=== PATIENT | male | born 1995 | race Caucasian/White ===

== ENCOUNTER 2022-12-20 00:53 | Emergency (ER) | payer BC, OTHER ==
[~2022-12-20] VITALS: Ht 178 cm; Wt 76.0 kg
[2022-12-20] MEDS ORDERED: KETOROLAC INJ 30 MG/ML VIAL IVP STA (01:14)
[2022-12-20] MEDS ORDERED: NS IV 1000 ML 1,000 ML IV STA (01:14)
[2022-12-20] MEDS ORDERED: FLUO90CA4 PO (01:14)
[2022-12-20] MEDS ORDERED: ONDANSETRON INJECTION 4 MG/2 ML (SDV) IVP ONE (01:15)
[2022-12-20] MEDS ORDERED: PANTOPRAZOLE INJECTION 40 MG VIAL IV ONE (01:15)
[2022-12-20 01:32] LABS: BASOPHILS # (AUTO) 0.1 10^3/uL (0.0-0.1); BASOPHILS % (AUTO) 1 % (0-10); EOSINOPHILS % (AUTO) 0 % (0-10); HEMATOCRIT 45 % (40-54); HEMOGLOBIN 15.8 g/dL (13.3-17.7); LYMPHOCYTES # (AUTO) 2.7 10^3/uL (1.0-4.0); LYMPHOCYTES % (AUTO) 27 % (12-44); MEAN CORPUSCULAR HEMOGLOBIN 34 pg (25-34); MEAN CORPUSCULAR HGB CONC 35 g/dL (32-36); MEAN CORPUSCULAR VOLUME 97 fL (80-99); MEAN PLATELET VOLUME 9.1 fL (9.0-12.2); MONOCYTES % (AUTO) 11 % (0-12); NEUTROPHILS # (AUTO) 6.1 10^3/uL (1.8-7.8); NEUTROPHILS % (AUTO) 62 % (42-75); PLATELET COUNT 319 10^3/uL (130-400); WHITE BLOOD COUNT 9.8 10^3/uL (4.3-11.0)
--- NOTE | 2022-12-20 01:45 | ED Abdominal Pain ---
General Chief Complaint: Abdominal/GI Problems Stated Complaint: VOMITING Nursing Triage Note: UPPER ABDOMINAL PAIN, N/V/D SINCE 12/16/22 Source of Information: Patient Exam Limitations: No Limitations History of Present Illness Date Seen by Provider: Dec 20, 2022 Time Seen by Provider: 01:09 Initial Comments Here with report of nausea, vomiting and diarrhea over the last 3 days. States that he is unable to keep anything down. He is able to tolerate some fluids but if she eats anything it comes back up. Denies blood in his vomit or stools. Denies fever currently. He tried some old Zofran that he had at home and that did not help. Complains of pain in the left epigastric region. Feeling worse tonight and so presented to the ED. Timing/Duration: 3-4 Days Severity/Quality: Moderate, Aching, Cramping Location: Epigastric Radiation: LUQ Activities at Onset: None Modifying Factors: Worsens With Eating Associated Symptoms: No Back Pain, No Chest Pain, No Fever/Chills; Nausea/Vomiting; No Shortness of Air; Weakness Allergies and Home Medications Allergies Coded Allergies: No Known Drug Allergies (Unverified , 12/20/22) Patient Home Medication List Home Medication List Reviewed: Yes Fluoxetine HCl (Fluoxetine Dr) 90 Mg Capsule.dr, Unknown Dose PO, (Reported) Entered as Reported by: PINO JURADO on 12/20/22113 Last Action: New Order Review of Systems Review of Systems Constitutional: see HPI; No chills, No fever EENTM: Nose Congestion; No Throat Pain Respiratory: Denies Orthopnea, Denies Shortness of Air Cardiovascular: Denies Chest Pain, Denies Edema Gastrointestinal: Abdominal Pain, Diarrhea, Nausea, Vomiting Genitourinary: No Symptoms Reported Musculoskeletal: no symptoms reported Skin: no symptoms reported Psychiatric/Neurological: No Symptoms Reported Past Xonubvm-Pkigci-[id number] Hx Patient Social History Tobacco Use?: Yes Use of E-Cig and/or Vaping dev: Yes E-Cig or Vaping type used: Nicotine Substance use?: No Alcohol Use?: Yes Alcohol Frequency: Once in a while Pt feels they are or have been: No Past Medical History Surgery/Hospitalization HX: RIGHT FEMUR BOWEN, GASTRIC ULCER, DEPRESSION, ANXIETY Surgeries: Yes Orthopedic Cardiac: No Neurological: No Gastrointestinal: Yes Gastroesophageal Reflux, Ulcer Musculoskeletal: Yes Fractures Psychosocial: Yes Anxiety Family Medical History Reviewed Nursing Family Hx Physical Exam Vital Signs Vital Signs - First Documented 12/20/22 01:05 Temp 37.3 Pulse 106 Resp 18 B/P (MAP) 150/108 (122) Pulse Ox 93 O2 Delivery Room Air Capillary Refill : Less Than 3 Seconds Height/Weight/BMI Height: '" Weight: lbs. oz. kg; 23.00 BMI Method: General Appearance: WD/WN, no apparent distress HEENT: PERRL/EOMI, pharynx normal Neck: full range of motion, supple Respiratory: lungs clear, normal breath sounds Cardiovascular: no murmur, tachycardia Gastrointestinal: soft; No guarding, No rebound; tenderness (Epigastric left upper quadrant mild tenderness to palpation) Back: normal inspection, no CVA tenderness, no vertebral tenderness Neurologic/Psychiatric: alert, oriented x 3 Skin: normal color, warm/dry Progress/Results/Core Measures Results/Orders Lab Results Laboratory Tests Test 12/20/22 01:15 Range/Units White Blood Count 9.8 4.3-11.0 10^3/uL Red Blood Count 4.67 4.30-5.52 10^6/uL Hemoglobin 15.8 13.3-17.7 g/dL Hematocrit 45 40-54 % Mean Corpuscular Volume 97 80-99 fL Mean Corpuscular Hemoglobin 34 25-34 pg Mean Corpuscular Hemoglobin Concent 35 32-36 g/dL Red Cell Distribution Width 11.8 10.0-14.5 % Platelet Count 319 130-400 10^3/uL Mean Platelet Volume 9.1 9.0-12.2 fL Immature Granulocyte % (Auto) 0 % Neutrophils (%) (Auto) 62 42-75 % Lymphocytes (%) (Auto) 27 12-44 % Monocytes (%) (Auto) 11 0-12 % Eosinophils (%) (Auto) 0 0-10 % Basophils (%) (Auto) 1 0-10 % Neutrophils # (Auto) 6.1 1.8-7.8 10^3/uL Lymphocytes # (Auto) 2.7 1.0-4.0 10^3/uL Monocytes # (Auto) 1.0 0.0-1.0 10^3/uL Eosinophils # (Auto) 0.0 0.0-0.3 10^3/uL Basophils # (Auto) 0.1 0.0-0.1 10^3/uL Immature Granulocyte # (Auto) 0.0 0.0-0.1 10^3/uL Sodium Level 137 135-145 MMOL/L Potassium Level 3.6 3.6-5.0 MMOL/L Chloride Level 97 L 98-107 MMOL/L Carbon Dioxide Level 21 21-32 MMOL/L Anion Gap 19 H 5-14 MMOL/L Blood Urea Nitrogen 5 L 7-18 MG/DL Creatinine 0.86 0.60-1.30 MG/DL Estimat Glomerular Filtration Rate 120 BUN/Creatinine Ratio 6 Glucose Level 99 70-105 MG/DL Calcium Level 9.3 8.5-10.1 MG/DL Corrected Calcium 8.5-10.1 MG/DL Total Bilirubin 0.7 0.1-1.0 MG/DL Aspartate Amino Transf (AST/SGOT) 54 H 5-34 U/L Alanine Aminotransferase (ALT/SGPT) 51 0-55 U/L Alkaline Phosphatase 83 40-136 U/L C-Reactive Protein High Sensitivity 0.02 0.00-0.50 MG/DL Total Protein 7.8 6.4-8.2 GM/DL Albumin 4.6 H 3.2-4.5 GM/DL Lipase 18 8-78 U/L My Orders Orders - PATRICIA NEWMAN MD Cbc And Automated Diff (12/20/22 01:14) Comprehensive Metabolic Panel (12/20/22 01:14) Hs C Reactive Protein (12/20/22 01:14) Lipase (12/20/22 01:14) Ondansetron Injection (Ondansetron Inj (12/20/22 01:15) Ns Iv 1000 Ml (Ns Iv 1000 Ml) (12/20/22 01:14) Ed Iv/Invasive Line Start (12/20/22 01:14) Ketorolac Injection (Ketorolac Injection (12/20/22 01:14) Pantoprazole Injection (Pantoprazole Inj (12/20/22 01:15) Fentanyl Injection (Fentanyl Injection (12/20/22 01:58) Medications Given in ED Current Medications Medications Dose Ordered Sig/Inder Route Start Time Stop Time Status Last Admin Dose Admin Ondansetron HCl 4 mg ONCE ONCE IVP 12/20/22 01:15 12/20/22 01:16 DC 10/4/23 01:21 4 MG Pantoprazole 40 mg ONCE ONCE IV 12/20/22 01:15 12/20/22 01:16 DC 12/20/22 01:21 40 MG Vital Signs/I&O 12/20/22 01:05 Temp 37.3 Pulse 106 Resp 18 B/P (MAP) 150/108 (122) Pulse Ox 93 O2 Delivery Room Air Blood Pressure Mean: 122 Progress Progress Note : Progress Note Seen and evaluated. IV, labs including CBC, CMP and lipase ordered. Normal saline 1 L bolus. Zofran 4 mg IV, Toradol 30 mg IV and Protonix 40 mg IV ordered. Monitor patient. Differential diagnosis includes pancreatitis, gastritis, dehydration, electrolyte abnormality, gallbladder dysfunction 0145: CBC is grossly normal. Chemistries pending. 0233: I did add fentanyl 50 mcg IV for pain and he is doing much better now. CMP reviewed and shows grossly normal electrolytes with normal creatinine. LFTs grossly normal with normal bilirubin. Lipase is negative. CRP is negative. Given that he is feeling better and labs do not show significant abnormality, I do not believe CT scan would be indicated at this point. I did discussed the option of CT scan of the abdomen and pelvis with the patient and we reviewed risk and benefits. Ultimately we all agree against it at this point but would consider that in the future if pain worsened. Discharged home with return precautions, OTC medications instructions and follow-up plan. Blood pressure noted to be elevated at 150/100 currently. I am not sure if this is ED effect versus true hypertension. I have instructed him to follow-up with Dr. Gabriel, patient's primary care physician, for further evaluation of this. He will monitor and record his blood pressure and take that to the visit. I will send a copy of the note to Dr. Gabriel. Discharged home with return precautions. Patient verbalized understanding of instructions and agreement with plan. Departure Impression Primary Impression: Epigastric abdominal pain Additional Impressions: Nausea vomiting and diarrhea Dehydration Disposition: HOME, SELF-CARE Condition: Improved Departure-Patient Inst. Decision time for Depature: 02:36 Referrals: JOSEFINA GABRIEL MD (PCP/Family) Primary Care Physician Patient Instructions: Severe Abdominal Pain, Adult (DC), Nausea and Vomiting, Adult (DC), Dehydration, Adult (DC), Diarrhea in adolescents and adults Add. Discharge Instructions: All discharge instructions reviewed with patient and/or family. Voiced understanding. Drink plenty of fluids by taking small sips frequently. Use clear a light diet for the next 24 to 48 hours and then advance as tolerated. You should initiate [id number] omeprazole 20 mg daily and take this for at least the next 2 weeks and then as needed. For your blood pressure, monitor and record your blood pressure daily and follow-up with Dr. Gabriel to evaluate if there is further needs for blood pressure control. Take the log with you to his office. For pain, you may use Tylenol/acetaminophen 1000 mg every 6-8 hours as needed for pain. You may try a limited amount of ibuprofen if needed for breakthrough pain but this may cause some additional burning in your stomach and otherwise should be avoided. Return for worse pain, fever, vomiting, weakness, breathing problems or other concerns as needed. Take medications as directed. Scripts Ondansetron (Ondansetron Odt) 4 Mg Tab.rapdis 4 MG PO Q6H PRN for NAUSEA/VOMITING, #12 TAB 0 Refills Prov: PATRICIA NEWMAN MD 12/20/22 Copy Copies To 1: JOSEFINA GABRIEL MD, TIMOTHY D MD Dec 20, 2022 01:45
[2022-12-20 01:46] LABS: ALBUMIN 4.6 GM/DL (3.2-4.5); CHLORIDE 97 MMOL/L (98-107); POTASSIUM 3.6 MMOL/L (3.6-5.0); SODIUM 137 MMOL/L (135-145)
[2022-12-20 01:47] LABS: CALCIUM 9.3 MG/DL (8.5-10.1)
[2022-12-20 01:49] LABS: GLUCOSE 99 MG/DL (70-105); TOTAL PROTEIN 7.8 GM/DL (6.4-8.2)
[2022-12-20 01:50] LABS: BILIRUBIN,TOTAL 0.7 MG/DL (0.1-1.0); CARBON DIOXIDE 21 MMOL/L (21-32)
[2022-12-20 01:52] LABS: ALKALINE PHOSPHATASE 83 U/L (40-136); CREATININE SERUM 0.86 MG/DL (0.60-1.30); GFR ESTIMATED 120
[2022-12-20 01:53] LABS: BUN/CREATININE RATIO 6
[2022-12-20 01:55] LABS: ALANINE AMINOTRANSFERASE 51 U/L (0-55)
[2022-12-20 01:56] LABS: LIPASE 18 U/L (8-78)
[2022-12-20] MEDS ORDERED: fentaNYL INJECTION 100 MCG/2 ML VIAL IVP STA (01:58)
[2022-12-20] MEDS ORDERED: ONDA4TAB11 PO (02:37)
[2022-12-20 02:41] VITALS: BP 155/108
== END 2022-12-20 02:44 | disposition home or self-care (01) ==
LOC: ER 00:56
DX: R10.13 Epigastric pain (principal); E86.0 Dehydration; R11.2 Nausea with vomiting, unspecified; R19.7 Diarrhea, unspecified; R03.0 Elevated blood-pressure reading, without diagnosis of hypertension; F17.290 Nicotine dependence, other tobacco product, uncomplicated
CPT/HCPCS: 36415; 80053; 83690; 85025; 86141

== ENCOUNTER 2022-12-27 09:37 | Inpatient (IN) | payer BC ==
[~2022-12-27] VITALS: Ht 177.8 cm; Wt 71.8 kg
[~2022-12-27 09:37] MED LIST: FLUO90CA4 PO; ONDA4TAB11 PO
[2022-12-27] MEDS ORDERED: PANTOPRAZOLE INJECTION 40 MG VIAL IV ONE (10:00)
[2022-12-27] MEDS ORDERED: ONDANSETRON INJECTION 4 MG/2 ML (SDV) IVP ONE (10:00)
[2022-12-27] MEDS ORDERED: LACTATED RINGERS 1,000 ML 1,000 ML IV ONE (10:00)
--- NOTE | 2022-12-27 10:10 | ED Abdominal Pain ---
General Chief Complaint: Abdominal/GI Problems Stated Complaint: ABD PAIN | VOMITING Nursing Triage Note: PT AMB TO RM 10 WITH COMPLAINT OF ABD PAIN, N/V. STATES HE HAS HAD SYMPTOMS FOR 2 WEEKS. WAS SEEN IN ER A WEEK AGO. Source of Information: Patient Exam Limitations: No Limitations (CASSIE PAEZ) History of Present Illness Date Seen by Provider: Dec 27, 2022 Time Seen by Provider: 09:52 Initial Comments Patient presents to the ED today with a 2 week history of Nausea, Vomiting and Abdominal pain. He was recently seen in the ED by Dr. Newman on 12/20. He says that the Zofran that was prescribed to him on the helped for a day or two but he was not intaking much at that time. He said in the next coming days his symptoms had worsened and he has not had any relief with use of Zofran, Pepto, or Tums. He states he has had a 10 lb weight loss over the past two weeks. He complains of also having diaphoresis and chills during this time frame. He describes the abdominal pain as a stabbing and burning pain. Timing/Duration: Getting Worse Severity/Quality: Mild, Burning, Stabbing Location: Generalized Abdomen Radiation: Back Activities at Onset: None Modifying Factors: Improves With Antacids, Improves With Vomiting Associated Symptoms: Back Pain, Diaphoresis, Fever/Chills, Nausea/Vomiting (CASSIE PAEZ) Allergies and Home Medications Allergies Coded Allergies: No Known Drug Allergies (Unverified , 12/20/22) Patient Home Medication List Home Medication List Reviewed: Yes (CASSIE PAEZ) Fluoxetine HCl (Fluoxetine Dr) 90 Mg Capsule.dr, Unknown Dose PO, (Reported) Entered as Reported by: PINO JURADO on 12/20/22 0114 Ondansetron (Ondansetron Odt) 4 Mg Tab.rapdis, 4 MG PO Q6H PRN for NAUSEA/VOMITING Prescribed by: PATRICIA NEWMAN on 12/20/22 0236 Review of Systems Review of Systems Constitutional: chills, diaphoresis, fever, weight loss (10 lbs) Respiratory: No Symptoms Reported Cardiovascular: No Symptoms Reported Gastrointestinal: Abdominal Pain, Diarrhea (occasionally over past 2 weeks. ), Nausea, Poor Appetite, Poor Fluid Intake, Vomiting Musculoskeletal: back pain (believes from throwing up often) Psychiatric/Neurological: Anxiety (CASSIE PAEZ) Past Zuecxcd-Cdvezg-Xgrnmx Hx Patient Social History Tobacco Use?: No Use of E-Cig and/or Vaping dev: Yes Use of E-Cig and/or Vaping Anthony: Current Everyday User Substance use?: No Alcohol Use?: Yes Alcohol Frequency: Once in a while Pt feels they are or have been: No (CASSIE PAEZ) Past Medical History Surgery/Hospitalization HX: RIGHT FEMUR BOWEN, GASTRIC ULCER, DEPRESSION, ANXIETY Surgeries: Yes Orthopedic Respiratory: No Cardiac: No Neurological: No Gastrointestinal: Yes Gastroesophageal Reflux, Ulcer Musculoskeletal: Yes Fractures (right femur) Psychosocial: Yes Anxiety (CASSIE PAEZ) Physical Exam Vital Signs Vital Signs - First Documented 12/27/22 09:50 Temp 36.9 Pulse 101 Resp 99 B/P (MAP) 152/100 (117) Pulse Ox 99 O2 Delivery Room Air Capillary Refill : Less Than 3 Seconds Height/Weight/BMI Height: '" Weight: lbs. oz. kg; 24.00 BMI Method: General Appearance: WD/WN, mild distress Neck: non-tender, supple Respiratory: lungs clear, normal breath sounds, no respiratory distress, no a ccessory muscle use; No crackles, No rales, No wheezing Cardiovascular: no gallop, no murmur, tachycardia Gastrointestinal: soft, no organomegaly, no pulsatile mass, abnormal bowel sounds (hyperactive), tenderness (diffuse); No hepatomegaly, No spleenomegaly Back: normal inspection, no vertebral tenderness Neurologic/Psychiatric: alert, normal mood/affect, oriented x 3 (CASSIE PAEZ) Vital Signs Vital Signs - First Documented 12/27/22 09:50 Temp 36.9 Pulse 101 Resp 99 B/P (MAP) 152/100 (117) Pulse Ox 99 O2 Delivery Room Air (CIARA CHAVEZ MD) Progress/Results/Core Measures Results/Orders Lab Results Laboratory Tests Test 12/27/22 10:15 Range/Units White Blood Count 9.6 4.3-11.0 10^3/uL Red Blood Count 5.07 4.30-5.52 10^6/uL Hemoglobin 17.0 13.3-17.7 g/dL Hematocrit 50 40-54 % Mean Corpuscular Volume 99 80-99 fL Mean Corpuscular Hemoglobin 34 25-34 pg Mean Corpuscular Hemoglobin Concent 34 32-36 g/dL Red Cell Distribution Width 11.9 10.0-14.5 % Platelet Count 301 130-400 10^3/uL Mean Platelet Volume 9.6 9.0-12.2 fL Immature Granulocyte % (Auto) 0 % Neutrophils (%) (Auto) 81 H 42-75 % Lymphocytes (%) (Auto) 11 L 12-44 % Monocytes (%) (Auto) 7 0-12 % Eosinophils (%) (Auto) 0 0-10 % Basophils (%) (Auto) 1 0-10 % Neutrophils # (Auto) 7.8 1.8-7.8 10^3/uL Lymphocytes # (Auto) 1.1 1.0-4.0 10^3/uL Monocytes # (Auto) 0.7 0.0-1.0 10^3/uL Eosinophils # (Auto) 0.0 0.0-0.3 10^3/uL Basophils # (Auto) 0.1 0.0-0.1 10^3/uL Immature Granulocyte # (Auto) 0.0 0.0-0.1 10^3/uL Sodium Level 140 135-145 MMOL/L Potassium Level 4.1 3.6-5.0 MMOL/L Chloride Level 101 98-107 MMOL/L Carbon Dioxide Level 24 21-32 MMOL/L Anion Gap 15 H 5-14 MMOL/L Blood Urea Nitrogen 7 7-18 MG/DL Creatinine 1.09 0.60-1.30 MG/DL Estimat Glomerular Filtration Rate 94 BUN/Creatinine Ratio 6 Glucose Level 112 H 70-105 MG/DL Calcium Level 10.2 H 8.5-10.1 MG/DL Corrected Calcium 8.5-10.1 MG/DL Magnesium Level 1.9 1.6-2.4 MG/DL Total Bilirubin 1.0 0.1-1.0 MG/DL Aspartate Amino Transf (AST/SGOT) 36 H 5-34 U/L Alanine Aminotransferase (ALT/SGPT) 35 0-55 U/L Alkaline Phosphatase 81 40-136 U/L Total Protein 8.7 H 6.4-8.2 GM/DL Albumin 4.9 H 3.2-4.5 GM/DL Lipase 10 8-78 U/L Medications Given in ED Current Medications Medications Dose Ordered Sig/Inder Route Start Time Stop Time Status Last Admin Dose Admin Fentanyl Citrate 50 mcg ONCE ONCE IVP 12/27/22 10:15 12/27/22 10:16 DC 12/27/22 10:10 50 MCG Lactated Ringer's 1,000 ml @ 0 mls/hr Q0M ONCE IV 12/27/22 10:00 12/27/22 10:02 DC 12/27/22 10:09 0 MLS/HR Ondansetron HCl 8 mg ONCE ONCE IVP 12/27/22 10:00 12/27/22 10:02 DC 12/27/22 10:10 8 MG Pantoprazole 40 mg ONCE ONCE IV 12/27/22 10:00 12/27/22 10:02 DC 12/27/22 10:09 40 MG Vital Signs/I&O 12/27/22 09:50 Temp 36.9 Pulse 101 Resp 99 B/P (MAP) 152/100 (117) Pulse Ox 99 O2 Delivery Room Air Blood Pressure Mean: 117 (CASSIE PAEZ) Lab Results Laboratory Tests Test 12/27/22 10:15 12/27/22 11:14 Range/Units White Blood Count 9.6 4.3-11.0 10^3/uL Red Blood Count 5.07 4.30-5.52 10^6/uL Hemoglobin 17.0 13.3-17.7 g/dL Hematocrit 50 40-54 % Mean Corpuscular Volume 99 80-99 fL Mean Corpuscular Hemoglobin 34 25-34 pg Mean Corpuscular Hemoglobin Concent 34 32-36 g/dL Red Cell Distribution Width 11.9 10.0-14.5 % Platelet Count 301 130-400 10^3/uL Mean Platelet Volume 9.6 9.0-12.2 fL Immature Granulocyte % (Auto) 0 % Neutrophils (%) (Auto) 81 H 42-75 % Lymphocytes (%) (Auto) 11 L 12-44 % Monocytes (%) (Auto) 7 0-12 % Eosinophils (%) (Auto) 0 0-10 % Basophils (%) (Auto) 1 0-10 % Neutrophils # (Auto) 7.8 1.8-7.8 10^3/uL Lymphocytes # (Auto) 1.1 1.0-4.0 10^3/uL Monocytes # (Auto) 0.7 0.0-1.0 10^3/uL Eosinophils # (Auto) 0.0 0.0-0.3 10^3/uL Basophils # (Auto) 0.1 0.0-0.1 10^3/uL Immature Granulocyte # (Auto) 0.0 0.0-0.1 10^3/uL Sodium Level 140 135-145 MMOL/L Potassium Level 4.1 3.6-5.0 MMOL/L Chloride Level 101 98-107 MMOL/L Carbon Dioxide Level 24 21-32 MMOL/L Anion Gap 15 H 5-14 MMOL/L Blood Urea Nitrogen 7 7-18 MG/DL Creatinine 1.09 0.60-1.30 MG/DL Estimat Glomerular Filtration Rate 94 BUN/Creatinine Ratio 6 Glucose Level 112 H 70-105 MG/DL Calcium Level 10.2 H 8.5-10.1 MG/DL Corrected Calcium 8.5-10.1 MG/DL Magnesium Level 1.9 1.6-2.4 MG/DL Total Bilirubin 1.0 0.1-1.0 MG/DL Aspartate Amino Transf (AST/SGOT) 36 H 5-34 U/L Alanine Aminotransferase (ALT/SGPT) 35 0-55 U/L Alkaline Phosphatase 81 40-136 U/L C-Reactive Protein High Sensitivity 0.19 0.00-0.50 MG/DL Total Protein 8.7 H 6.4-8.2 GM/DL Albumin 4.9 H 3.2-4.5 GM/DL Lipase 10 8-78 U/L Serum Alcohol < 10 <10 MG/DL Urine Color YELLOW Urine Clarity CLEAR Urine pH 8.5 5-9 Urine Specific [place] 1.015 L 1.016-1.022 Urine Protein 1+ H NEGATIVE Urine Glucose (UA) NEGATIVE NEGATIVE Urine Ketones 4+ H NEGATIVE Urine Nitrite NEGATIVE NEGATIVE Urine Bilirubin NEGATIVE NEGATIVE Urine Urobilinogen 0.2 < = 1.0 MG/DL Urine Leukocyte Esterase NEGATIVE NEGATIVE Urine RBC (Auto) TRACE H NEGATIVE Urine RBC RARE /HPF Urine WBC 0-2 /HPF Urine Crystals NONE /LPF Urine Bacteria NEGATIVE /HPF Urine Casts NONE /LPF Urine Mucus SMALL H /LPF Urine Other FEW SPERM H /HPF Urine Culture Indicated NO Urine Opiates Screen NEGATIVE NEGATIVE Urine Oxycodone Screen NEGATIVE NEGATIVE Urine Methadone Screen NEGATIVE NEGATIVE Urine Propoxyphene Screen NEGATIVE NEGATIVE Urine Barbiturates Screen NEGATIVE NEGATIVE Ur Tricyclic Antidepressants Screen NEGATIVE NEGATIVE Urine Phencyclidine Screen NEGATIVE NEGATIVE Urine Amphetamines Screen NEGATIVE NEGATIVE Urine Methamphetamines Screen NEGATIVE NEGATIVE Urine Benzodiazepines Screen NEGATIVE NEGATIVE Urine Cocaine Screen NEGATIVE NEGATIVE Urine Cannabinoids Screen NEGATIVE NEGATIVE My Orders Orders - CIARA CHAVEZ MD Cbc And Automated Diff (12/27/22 10:00) Comprehensive Metabolic Panel (12/27/22 10:00) Hs C Reactive Protein (12/27/22 10:00) Lipase (12/27/22 10:00) Magnesium (12/27/22 10:00) Ed Iv/Invasive Line Start (12/27/22 10:00) Lactated Ringers 1,000 Ml (Lactated Ring (12/27/22 10:00) Ondansetron Injection (Ondansetron Inj (12/27/22 10:00) Pantoprazole Injection (Pantoprazole Inj (12/27/22 10:00) Fentanyl Injection (Fentanyl Injection (12/27/22 10:15) Lidocaine 2% Viscous 15 Ml (Xylocaine Vi (12/27/22 10:45) Antacid Suspension (Antacid Suspension (12/27/22 10:45) Ns Iv 500 Ml (Ns Iv 500 Ml) (12/27/22 10:45) Promethazine Injection (Promethazine I (12/27/22 10:45) Drug Screen Stat (Urine) (12/27/22 11:07) Ua Culture If Indicated (12/27/22 11:07) Fentanyl Injection (Fentanyl Injection (12/27/22 11:30) Scopolamine Patch (Scopolamine Patch) (12/27/22 12:00) Diphenhydramine Injection (Diphenhydram (12/27/22 12:15) Ct Abdomen/Pelvis W (12/27/22 12:09) Received Contrast (Hold Metformin- Contr (12/27/22 12:15) Ns (Ivpb) 100 Ml (Sodium Chloride 0.9% 1 (12/27/22 12:15) Iohexol Injection (Omnipaque 350 Mg/Ml 1 (12/27/22 12:15) Morphine Injection (Morphine Injection (12/27/22 13:34) Alcohol (12/27/22 14:02) Lorazepam Injection (Lorazepam Injection (12/27/22 14:15) Medications Given in ED Current Medications Medications Dose Ordered Sig/Inder Route Start Time Stop Time Status Last Admin Dose Admin Diphenhydramine HCl 25 mg ONCE ONCE IVP 12/27/22 12:15 12/27/22 12:16 DC 12/27/22 12:24 25 MG Fentanyl Citrate 50 mcg ONCE ONCE IVP 12/27/22 10:15 12/27/22 10:16 DC 12/27/22 10:10 50 MCG Fentanyl Citrate 50 mcg ONCE ONCE IVP 12/27/22 11:30 12/27/22 11:31 DC 12/27/22 12:00 50 MCG Iohexol 100 ml ONCE ONCE IV 12/27/22 12:15 12/27/22 12:16 DC 12/27/22 12:32 80 ML Lactated Ringer's 1,000 ml @ 0 mls/hr Q0M ONCE IV 12/27/22 10:00 12/27/22 10:02 DC 12/27/22 10:09 0 MLS/HR Lorazepam 1 mg ONCE ONCE IVP 12/27/22 14:15 12/27/22 14:16 DC 12/27/22 14:13 1 MG Ondansetron HCl 8 mg ONCE ONCE IVP 12/27/22 10:00 12/27/22 10:02 DC 12/27/22 10:10 8 MG Pantoprazole 40 mg ONCE ONCE IV 12/27/22 10:00 12/27/22 10:02 DC 12/27/22 10:09 40 MG Promethazine HCl 25 mg ONCE ONCE IVP 12/27/22 10:45 12/27/22 10:46 DC 12/27/22 11:20 25 MG Scopolamine 1.5 mg ONCE ONCE TD 12/27/22 12:00 12/27/22 12:01 DC 12/27/22 11:58 1.5 MG Sodium Chloride 100 ml ONCE ONCE IV 12/27/22 12:15 12/27/22 12:16 DC 12/27/22 12:33 80 ML Sodium Chloride 500 ml @ 0 mls/hr Q0M ONCE IV 12/27/22 10:45 12/27/22 10:46 DC 12/27/22 11:20 0 MLS/HR Vital Signs/I&O 12/27/22 09:50 Temp 36.9 Pulse 101 Resp 99 B/P (MAP) 152/100 (117) Pulse Ox 99 O2 Delivery Room Air (CIARA CHAVEZ MD) Progress Progress Note : Time: 09:52 Progress Note 09:52 - Patient presents with a 2 week history of N/V and abdominal pain. He was recently seen on December [address] Newman. He was prescribed Zofran at that time, to which he says worked for a day or two but symptoms soon came back and then worsened. He has also tried Pepto and Tums during this time frame. He says that he has had a 10 lb weight loss over the past two weeks. He complains of diaphoresis and chills that he says have gotten worse over the past couple of days. He described the pain in his abdomen as a stabbing and burning pain. He does have a history of stomach ulcer as well as GERD. He has diffuse tenderness to all areas of his abdomen but is worse in RUQ and epigastric area. He has vomited while throwing up in the ED. He is currently tachycardic and has an elevated blood pressure of 163/130, that he says is not the normal for him. His lungs are clear on auscultation. Plan is to obtain a CBC, CMP, Magnesium. He is being prescribed Zofran, Pantoprazole, and Fentenyl at this time as well as being given LR IV to help with rehydration. 10:50 - Patient is currently still profusely throwing up. He says that the Zofran, Pantoprazole and Fentenyl had helped him feel a little better but has since been throwing up again. A GI cocktail was originally offered, but this order has been cancelled due to his cyclic vomiting. The plan is to give him a 500 bag of Saline with Phenergan to try to stop his nausea an vomiting. (CASSIE PAEZ) Progress Note : Time: 14:49 Progress Note Patient was interviewed and examined by me personally along with PA student. Work-up was essentially unremarkable including CBC, CMP, CRP, lipase, urinalysis, and toxicology screening. All these labs were reviewed and interpreted by me. Patient had persistent vomiting and abdominal pain despite treatment with multiple antiemetics including Zofran 8 mg IV, Phenergan 25 mg IV, Benadryl 25 mg IV, scopolamine patch, and Protonix. His girlfriend later gave a different history of his alcohol consumption reporting to nursing staff that he often drank up to 8 beers nightly. I suspect he may be withdrawing as he is hypertensive and has tremors on repeat exam. He was given a dose of Ativan 1 mg IV which did help his symptoms. Tremors and hypertension remained. He is being given another dose of Ativan prior to admission. Case has been discussed with Dr. Restrepo, hospitalist on-call, who agrees with admission and is placing orders. (CIARA CHAVEZ MD) Diagnostic Imaging Diagonstic Imaging: CT Plain Films/CT/US/NM/MRI: abdomen, pelvis Comments NAME: YARED WATKINS [facility] REC#: [id number] PT STATUS: REG ER : 1995 PHYSICIAN: CIARA CHAVEZ MD ADMIT DATE: 12/27/22/ER Signed Date of Exam:12/27/22 CT ABDOMEN/PELVIS W PROCEDURE: CT abdomen and pelvis with contrast. TECHNIQUE: Multiple contiguous axial images were obtained through the abdomen and pelvis after administration of intravenous contrast. Auto Exposure Controls were utilized during the CT exam to meet ALARA standards for radiation dose reduction. All CT scans use one or more of the following dose optimizing techniques: automated exposure control, MA and/or KvP adjustment based on patient size and exam type or iterative reconstruction. INDICATION: Abdominal pain and emesis. FINDINGS: There is no focal hepatic or splenic abnormality. No gallbladder, pancreatic, or adrenal gland abnormality is identified. There is an approximately 0.3 cm nonobstructing stone in the central right kidney. There is no hydronephrosis. No additional urinary tract calculus or obstruction is identified. There is no evidence of appendiceal inflammation. The unopacified bladder is unremarkable. No pathologically enlarged adenopathy is seen within the abdomen or pelvis. IMPRESSION: No acute abnormality is identified. Nonobstructing right renal calculus measures 0.3 cm in size. Dictated by: Dictated on workstation # [id number] Dict: 12/27/22 1238 Trans: 12/27/22 1325 [id number] Interpreted by: KOBY HENDRICKS MD (CIARA CHAVEZ MD) Departure Communication (Admissions) Time/Spoke to Admitting Phy: 14:00 Dr. Restrepo (CIARA CHAVEZ MD) Impression Primary Impression: Intractable nausea and vomiting Additional Impressions: Generalized abdominal pain Alcohol abuse Hypertension Qualified Codes: I10 - Essential (primary) hypertension Disposition: ADMITTED INPATIENT Condition: Improved Admissions Decision to Admit Reason: Admit from ER (General) Decision to Admit/Date: Dec 27, 2022 Time/Decision to Admit Time: 14:00 (CIARA CHAVEZ MD) Departure-Patient Inst. Referrals: JOSEFINA GABRIEL MD (PCP/Family) Primary Care Physician Medical Student Attestation and Attending Note: I have personally interviewed and examined this patient along with QUINN Rosario. I have reviewed student documentation including history, physical, and assessments. I agree with the documentation except where otherwise noted. Exam: General: Alert, oriented, mild acute distress, well developed, thin HEENT: Normocephalic and atraumatic Heart: Regular rate and rhythm without murmur Lungs: Clear to auscultation bilaterally with normal effort Abdomen: Soft, diffusely TTP and greater in the epigastrium, nondistended, normal bowel sounds Neuropsych: Alert, oriented, no focal deficits, tremor of hands Skin: Warm and dry without rashes (CIARA CHAVEZ MD) Copy Copies To 1: JOSEFINA GABRIEL MD, BRETT Dec 27, 2022 10:10 CIARA CHAVEZ MD Dec 27, 2022 14:51
[2022-12-27] MEDS ORDERED: fentaNYL INJECTION 100 MCG/2 ML VIAL IVP ONE ×2 (10:15→11:30)
[2022-12-27 10:26] LABS: BASOPHILS # (AUTO) 0.1 10^3/uL (0.0-0.1); BASOPHILS % (AUTO) 1 % (0-10); EOSINOPHILS % (AUTO) 0 % (0-10); HEMATOCRIT 50 % (40-54); LYMPHOCYTES # (AUTO) 1.1 10^3/uL (1.0-4.0); LYMPHOCYTES % (AUTO) 11 % (12-44); MEAN CORPUSCULAR HEMOGLOBIN 34 pg (25-34); MEAN CORPUSCULAR HGB CONC 34 g/dL (32-36); MEAN CORPUSCULAR VOLUME 99 fL (80-99); MEAN PLATELET VOLUME 9.6 fL (9.0-12.2); MONOCYTES # (AUTO) 0.7 10^3/uL (0.0-1.0); MONOCYTES % (AUTO) 7 % (0-12); NEUTROPHILS # (AUTO) 7.8 10^3/uL (1.8-7.8); NEUTROPHILS % (AUTO) 81 % (42-75); PLATELET COUNT 301 10^3/uL (130-400); WHITE BLOOD COUNT 9.6 10^3/uL (4.3-11.0)
[2022-12-27 10:36] LABS: ALBUMIN 4.9 GM/DL (3.2-4.5); CHLORIDE 101 MMOL/L (98-107); POTASSIUM 4.1 MMOL/L (3.6-5.0); SODIUM 140 MMOL/L (135-145)
[2022-12-27 10:37] LABS: CALCIUM 10.2 MG/DL (8.5-10.1)
[2022-12-27 10:39] LABS: GLUCOSE 112 MG/DL (70-105); TOTAL PROTEIN 8.7 GM/DL (6.4-8.2)
[2022-12-27 10:40] LABS: CARBON DIOXIDE 24 MMOL/L (21-32)
[2022-12-27 10:42] LABS: ALKALINE PHOSPHATASE 81 U/L (40-136); CREATININE SERUM 1.09 MG/DL (0.60-1.30); GFR ESTIMATED 94
[2022-12-27 10:43] LABS: BUN/CREATININE RATIO 6
[2022-12-27 10:45] LABS: ALANINE AMINOTRANSFERASE 35 U/L (0-55); MAGNESIUM 1.9 MG/DL (1.6-2.4)
[2022-12-27] MEDS ORDERED: ANTACID SUSPENSION 30 ML UDC PO ONE (10:45)
[2022-12-27] MEDS ORDERED: PROMETHAZINE INJ 25 MG/ML VIAL IVP ONE (10:45)
[2022-12-27] MEDS ORDERED: LIDOCAINE 2% VISCOUS 15 ML UDC PO ONE (10:45)
[2022-12-27] MEDS ORDERED: NS IV 500 ML 500 ML IV ONE (10:45)
[2022-12-27 10:46] LABS: LIPASE 10 U/L (8-78)
[2022-12-27 11:53] LABS: AMPHETAMINE SCREEN, URINE NEGATIVE (NEGATIVE); BARBITURATE SCREEN URINE NEGATIVE (NEGATIVE); CANNABINOID SCREEN, URINE NEGATIVE (NEGATIVE); CLARITY,URINE CLEAR; COCAINE SCREEN URINE NEGATIVE (NEGATIVE); COLOR,URINE YELLOW; METHADONE STAT NEGATIVE (NEGATIVE); OPIATE SCREEN URINE NEGATIVE (NEGATIVE); OXYCODONE STAT NEGATIVE (NEGATIVE); PH,URINE 8.5 (5-9); PROPOXYPHENE STAT NEGATIVE (NEGATIVE); PROTEIN,URINE 1+ (NEGATIVE); TRICYCLIC ANTIDEPRESSANTS SCRE NEGATIVE (NEGATIVE)
[2022-12-27 11:54] LABS: BACTERIA,URINE NEGATIVE /HPF; BILIRUBIN,URINE NEGATIVE (NEGATIVE); GLUCOSE, URINE (UA) NEGATIVE (NEGATIVE); KETONES,URINE 4+ (NEGATIVE); LEUKOCYTE ESTERASE ,URINE NEGATIVE (NEGATIVE); NITRITE,URINE NEGATIVE (NEGATIVE); RBC,URINE RARE /HPF; WBC,URINE 0-2 /HPF
[2022-12-27 11:55] LABS: URINE OTHER FEW SPERM /HPF
[2022-12-27] MEDS ORDERED: SCOPOLAMINE 1.5 MG PATCH TD ONE (12:00)
[2022-12-27] MEDS ORDERED: NS 100 ML (IVPB) BAG IV ONE (12:15)
[2022-12-27] MEDS ORDERED: IOHEXOL 350 MG/ML 100 ML (OMNIPAQUE 350) VIAL IV ONE (12:15)
[2022-12-27] MEDS ORDERED: diphenhydrAMINE INJ 50 MG/ML VIAL IVP ONE (12:15)
[2022-12-27] MEDS ORDERED: HOLD METFORMIN - RECEIVED CONTRAST 20 ML VIAL IV SCH (12:15)
--- NOTE | 2022-12-27 12:42 | Diagnostic Imaging Report ---
PROCEDURE: CT abdomen and pelvis with contrast. TECHNIQUE: Multiple contiguous axial images were obtained through the abdomen and pelvis after administration of intravenous contrast. Auto Exposure Controls were utilized during the CT exam to meet ALARA standards for radiation dose reduction. All CT scans use one or more of the following dose optimizing techniques: automated exposure control, MA and/or KvP adjustment based on patient size and exam type or iterative reconstruction. INDICATION: Abdominal pain and emesis. FINDINGS: There is no focal hepatic or splenic abnormality. No gallbladder, pancreatic, or adrenal gland abnormality is identified. There is an approximately 0.3 cm nonobstructing stone in the central right kidney. There is no hydronephrosis. No additional urinary tract calculus or obstruction is identified. There is no evidence of appendiceal inflammation. The unopacified bladder is unremarkable. No pathologically enlarged adenopathy is seen within the abdomen or pelvis. IMPRESSION: No acute abnormality is identified. Nonobstructing right renal calculus measures 0.3 cm in size. Dictated by: Dictated on workstation # [id number]
[2022-12-27] MEDS ORDERED: morphine INJ 10 MG/ML 1ML (SYR OR VIAL) IVP STA (13:34)
[2022-12-27 15:45] VITALS: BP 152/123
[2022-12-27 16:00] VITALS: BP 149/93
[2022-12-27] MEDS ORDERED: 1/2 NS IV SOLUTION 1000 ML 1,000 ML IV PRN (16:45)
[2022-12-27] MEDS ORDERED: MILK OF MAGNESIA 400 MG/5 ML 30 ML UDC PO PRN (16:45)
[2022-12-27] MEDS ORDERED: NS IV 500 ML 500 ML IV PRN (16:45)
[2022-12-27] MEDS ORDERED: diphenhydrAMINE INJ 50 MG/ML VIAL IVP PRN (16:45)
[2022-12-27] MEDS ORDERED: SENNA W/DOCUSATE TABLET PO PRN (16:45)
[2022-12-27] MEDS ORDERED: CALCIUM CARBONATE 500 MG CHEW TABLET PO PRN (16:45)
[2022-12-27] MEDS ORDERED: ONDANSETRON 4 MG ORAL DISSOLVE TABLET SL PRN (16:45)
[2022-12-27] MEDS ORDERED: D5 1/2 NS 1,000 ML IV 1,000 ML IV PRN (16:45)
[2022-12-27] MEDS ORDERED: MELATONIN 3 MG TABLET PO PRN (16:45)
[2022-12-27] MEDS ORDERED: diphenhydrAMINE 25 MG TABLET PO PRN (16:45)
[2022-12-27] MEDS ORDERED: BISACODYL 10 MG SUPPOSITORY PR PRN (16:45)
[2022-12-27] MEDS ORDERED: ANTACID SUSPENSION 30 ML UDC PO PRN ×2 (16:45)
[2022-12-27] MEDS ORDERED: LACTULOSE SYRUP 10GM/15ML 30ML UDC PO PRN (16:45)
[2022-12-27] MEDS: LORazepam 1 MG TABLET PO PRN (18:35)
[2022-12-27] MEDS: PROMETHAZINE INJ 25 MG/ML VIAL IVP PRN (18:38)
[2022-12-27] MEDS ORDERED: LACTATED RINGERS 1,000 ML 1,000 ML IV SCH (19:00)
[2022-12-27] MEDS: THIAMINE INJECTION 100 MG, FOLIC ACID INJECTION 1 MG, MAGNESIUM SULFATE 2 GM, MULTIVITA... IV SCH ×5 (19:03)
[2022-12-27] MEDS: HYDROmorphone INJECTION 2 MG/ML VIAL IVP PRN ×2 (19:12→21:17)
[2022-12-27] MEDS ORDERED: FLU QUADRIvalent (6 months+) 60 mcg/0.5 ml 2023-2024 (FLUARIX) IM ONE (19:45)
[2022-12-27 19:50] VITALS: BP 139/99
[2022-12-27] MEDS: DOCUSATE SODIUM 100 MG CAPSULE PO SCH (20:15)
[2022-12-27] MEDS: SENNOSIDES 8.6 MG TABLET PO SCH (20:15)
[2022-12-27] MEDS: PANTOPRAZOLE INJECTION 40 MG VIAL IV SCH (21:16)
[2022-12-27] MEDS: DexMEDEtomidine 1,000mcg/250ml 250 ML IV SCH (22:27)
--- NOTE | 2022-12-27 22:29 | Tele-ICU Progress Note ---
Progress Note 27M with GERD, PUD presented with 2 weeks N/V/ABD pain. Has tried zofran, pepto and tums with minimal relief. Has had a 10-lb weight loss in the past 2 weeks. Describes epigastric stabbing and burning. Reported to be diffusely TTP, more so in the RUQ and epigastric areas. Reported to have profuse vomiting in the ED with only brief improvement with protonix, fentanyl and zofran. Given phenergan, beandryl and scopolamine about an hour after. He then became tremulous and GF reported up to 8 beers per night, suspicious for withdrawal syndrome in conjunction with ongoing hypertension and tachycardia. Over the last couple of months has been drinking more like 20-25 beers daily. Even yesterday with ongoing abd pain and vomiting managed to drink 10 beers. Minimal other PO intake. He was given several doses of ativan, thiamine, folate and admitted to the floor. He was transferred this evening for worsening EtOH withdrwals. Has ongoing auditory and visual hallucinations. Significant tremors. A/P: - ABD pain: suspicious for severe gastritis vs PUD. NPO. Protinix BID. CT negative for acute pathology. No abnormalities of pancreas, specifically. Lipase WNL. Consult surgery for EGD in AM. - withdrawals: EtOH 0 on presentation, known to have 10 beers yesterday. Anticipate severe withdrwals. Will start precedex now. If continues to have severe withdrawal symptoms, will initiate phenobarb. Banana bag ongoing. Monitor electrolytes, on presentation they were normal. Patient assessed via continuous audiovisual communication system. Patient is being assessed from a remote location. Chart reviewed, discussed with RN. CCT 22 min Focused Exam Height, Weight, BMI Height: '" Weight: lbs. oz. kg; 24.00 BMI Method: STEVEN LOMBARDO MD Dec 27, 2022 22:29
[2022-12-28 04:30] LABS: BASOPHILS # (AUTO) 0.1 10^3/uL (0.0-0.1); BASOPHILS % (AUTO) 1 % (0-10); EOSINOPHILS # (AUTO) 0.1 10^3/uL (0.0-0.3); EOSINOPHILS % (AUTO) 1 % (0-10); HEMATOCRIT 41 % (40-54); HEMOGLOBIN 13.9 g/dL (13.3-17.7); LYMPHOCYTES % (AUTO) 26 % (12-44); MEAN CORPUSCULAR HEMOGLOBIN 34 pg (25-34); MEAN CORPUSCULAR HGB CONC 34 g/dL (32-36); MEAN CORPUSCULAR VOLUME 99 fL (80-99); MEAN PLATELET VOLUME 10.1 fL (9.0-12.2); MONOCYTES # (AUTO) 0.9 10^3/uL (0.0-1.0); MONOCYTES % (AUTO) 12 % (0-12); NEUTROPHILS # (AUTO) 4.6 10^3/uL (1.8-7.8); NEUTROPHILS % (AUTO) 61 % (42-75); PLATELET COUNT 267 10^3/uL (130-400); WHITE BLOOD COUNT 7.6 10^3/uL (4.3-11.0)
[2022-12-28 04:55] LABS: POTASSIUM 3.3 MMOL/L (3.6-5.0)
[2022-12-28 04:57] LABS: CALCIUM 8.8 MG/DL (8.5-10.1)
[2022-12-28 05:01] LABS: CREATININE SERUM 0.88 MG/DL (0.60-1.30)
[2022-12-28 05:03] LABS: MAGNESIUM 2.3 MG/DL (1.6-2.4)
[2022-12-28] MEDS: POTASSIUM CL 10MEQ/50ML IVPB 50 ML IV SCH ×7 (05:34→12:24)
[2022-12-28] MEDS: POTASSIUM BICARB 20 MEQ effervescent TABLET PO SCH (05:35)
[2022-12-28] MEDS: MAGNESIUM 1 GM/100 ML IVPB 100 ML IV SCH (05:35)
[2022-12-28] MEDS: POTASSIUM CHLORIDE 20 MEQ TABLET PO SCH (05:35)
[2022-12-28] MEDS: PANTOPRAZOLE INJECTION 40 MG VIAL IV SCH ×2 (09:03→20:29)
[2022-12-28] MEDS: PROMETHAZINE INJ 25 MG/ML VIAL IVP PRN ×2 (09:12→16:34)
[2022-12-28] MEDS: THIAMINE INJECTION 100 MG, FOLIC ACID INJECTION 1 MG, MAGNESIUM SULFATE 2 GM, MULTIVITA... IV SCH ×5 (09:18)
[2022-12-28] MEDS: DOCUSATE SODIUM 100 MG CAPSULE PO SCH ×3 (09:34→21:14)
[2022-12-28] MEDS: SENNOSIDES 8.6 MG TABLET PO SCH ×2 (10:11→21:14)
--- NOTE | 2022-12-28 11:26 | Tele-ICU Progress Note ---
Subjective Date Seen by a Provider: Dec 28, 2022 Time Seen by a Provider: 11:25 Subjective/Events-last exam (Tele-ICU Physician , Progress Note ) Service provided via interactive audio and video telecommunications E-CARE system to a patient admitted to ICU bed in [facility]. Patient is seen today due to persistent need of ICU care Available chart/ vitals / labs / Images reviewed Video assessment done using teleICU camera, rest of exam as per RN He is a 27-year-old male with past medical history of alcohol abuse, GERD and peptic ulcer presented to the emergency room with the epigastric severe pain. He was evaluated with CT of the abdomen and pelvis which is unremarkable also his lipase is within normal limits apparently he is originally admitted to medical floor where he developed alcohol withdrawal syndrome hence he is transferred to the ICU where he required a Precedex drip and CIWA protocol. Currently he is a sleeping hence he has a Precedex drip is held and. It is on standby. He also received 1 dose of phenobarbital. Impression 1. Epigastric pain most likely due to gastritis or exacerbation of peptic ulcer due to heavy alcohol abuse 2. Alcohol abuse disorder 3. Alcohol withdrawal syndrome. Recommendations 1. Continue CIWA protocol and use phenobarbital as second line of drug. We will try to wean off Precedex. 2. Thiamine and folic acid will be given 3. IV Protonix. 4. General surgery consult for evaluation and management of epigastric pain.. Coordination of care with bedside consultants and primary care physician. Next Case discussed in MDR and with ADMINISTRATIVE SALES ASSISTANT I am remotely monitoring this patient from Tele icu station in [place]. I am unable to do the bedside exam, and history/physical and pertinent information is taken from other notes in the computer and bedside staff. Certain portions of this document may have been dictated utilizing voice recognition technology such as [employer]. Inherent to this technology, typographical and grammatical errors may exist. As much as I am diligent to identify and correct to these mistakes, some errors may remain in the document. Critical care time devoted to this patient today is approximately is--25 minutes. Sepsis Event Evaluation Height, Weight, BMI Height: '" Weight: lbs. oz. kg; 24.00 BMI Method: Exam Exam Patient acknowledged, consented, and participated in this virtual visit which was conducted using real time audio/video Vital Signs Date Time Temp Pulse Resp B/P (MAP) Pulse Ox O2 Delivery O2 Flow Rate FiO2 12/28/22 11:00 63 19 130/81 (97) 96 Room Air 12/28/22 10:00 67 24 133/93 (106) 96 Room Air 12/28/22 09:00 49 21 149/100 (116) 96 Room Air 12/28/22 08:00 37.5 12/28/22 08:00 56 20 147/99 (115) 96 Room Air 12/28/22 08:00 37.5 12/28/22 07:39 57 12/28/22 07:00 59 18 149/100 (116) 95 Room Air 12/28/22 06:00 61 20 137/99 (112) 95 Room Air 12/28/22 05:00 64 24 150/106 (121) 95 Room Air 12/28/22 04:16 Room Air 12/28/22 04:15 37.6 12/28/22 04:00 64 22 150/105 (120) 96 Room Air 12/28/22 03:00 67 21 149/104 (119) 95 Room Air 12/28/22 02:00 70 22 150/106 (121) 95 Room Air 12/28/22 01:00 63 12/28/22 01:00 69 21 157/108 (124) 95 Room Air 12/28/22 00:00 71 20 150/106 (121) 95 Room Air 12/27/22 23:41 Room Air 12/27/22 23:00 135 16 174/97 (122) 95 Room Air 12/27/22 22:27 116 135/95 12/27/22 22:00 122 24 135/95 (108) 94 Room Air 12/27/22 21:00 107 19 146/80 (102) 95 Room Air 12/27/22 20:45 100 20 96 Room Air 12/27/22 20:21 Room Air 12/27/22 20:15 98 95 Room Air 12/27/22 19:50 37.2 111 21 139/99 (112) 96 Room Air 12/27/22 19:45 97 95 Room Air 12/27/22 19:30 125 154/100 (118) 95 Room Air 12/27/22 19:15 107 95 Room Air 12/27/22 19:00 105 137/99 (112) 95 Room Air 12/27/22 19:00 105 12/27/22 19:00 108 12/27/22 16:07 36.2 12/27/22 16:02 113 12/27/22 16:00 Room Air 12/27/22 16:00 111 25 149/93 (111) 95 Room Air 12/27/22 15:45 112 25 152/123 (133) 95 Room Air 12/27/22 15:36 88 16 160/107 96 Room Air I & O 12/28/22 07:00 Intake Total 1870 ml Balance 1870 ml Height & Weight Height: '" Weight: lbs. oz. kg; 24.00 BMI Method: General Appearance: Anxious, Mild Distress Capillary Refill: Less Than 3 Seconds Gastrointestinal: soft, no organomegaly, no pulsatile mass, abnormal bowel s ounds (hyperactive), tenderness (diffuse); No hepatomegaly, No spleenomegaly Results Lab Laboratory Tests 12/27/22 10:15 12/28/22 04:00 Assessment/Plan Assessment/Plan as above Critical Care: Critically Ill Patient Time spent with patient (mins): 25 KIMBERLY NAYLOR MD Dec 28, 2022 11:26
--- NOTE | 2022-12-28 13:18 | History & Physical-Hospitalist ---
PUJA LEE 12/28/22 1318: History of Present Illness HPI/Chief Complaint Tyrone Barrett is a 27yo male who presented to the ED yesterday due to abdominal pain and 2 weeks of intractable vomiting. He was last seen in the [facility] ED for this problem on 12/20/22. Upon my arrival he was very sedated, actively hallucinating, and was only able to answer a few questions. Tyrone's abdominal pain is located in the epigastric region. He describes his pain as constant and sharp. Per chart antacids and vomiting makes him feel better. He has associated nausea, vomiting, diaphoresis, and chills. Tyrone described that his vomit was initially food, then yellow, then green. Per RN he reportedly told them it was blood tinged with coffee ground emesis. Per chart he has reportedly lost 10lbs over the last 2 weeks. This patient has a history of GERD, Gastric ucler, anxiety, and depression. His surgical history is non-contributory and he has no known drug allergies. He takes fluoxetine for his anxiety and depression and was given zofran to help with nausea. Per chart he has a history of E-cigarette use and vaping. His girlfriend told ED staff he was drinking 8-10 beers/day. Per RN he said he has been drinking 10-25 beers/day. Upon his arrival in the ED he was tachycardic, hypertensive, and severely tachypnic. His initial CIWA score was 10 and he was admitted to the medical-surgical floor. In the evening he became more agitated and CIWA score climbed 36 and he was admitted to the ICU for delerium tremens. When admitted to the ICU he was given lorazepam, phenobarbitol, and precedex. Upon my arrival he was hypertensive and bradycardic. CIWA score this morning was a 6. He had not urinated since his admission when I saw him. A straight catheter was inserted. Lab results were non-contributory and lipase was normal. His tox screen was n egative and JANET was normal. Some ketones were present in urine. CT of the abdomen and pelvis was performed showing a small nonobstructing calculi and was otherwise non-contributory. EKG was performed this morning showing sinus bradycardia. Source: patient, RN/MD, RN notes reviewed, EMS notes reviewed Exam Limitations: clinical condition, intoxication, other (patient is heavily sedated and in DTs, he was able to arouse and answer a few questions) Date Seen 12/28/22 Time Seen by a Provider: 08:30 Attending Physician Kaia Raphael MD PCP Admitting Physician: Kaia Raphael MD Attending Physician: Kaia Raphael MD PCP: Thaddeus Castillo MD Referring Physician Date of Admission Dec 27, 2022 at 18:59 Home Medications & Allergies Home Medications Reviewed patient Home Medication Reconciliation performed by pharmacy medication reconciliations maintenance parts technician and/or nursing. Patients Allergies have been reviewed. Allergies Allergies Coded Allergies No Known Drug Allergies (Qjuqiayizp06/4/23) Past Tdouapv-Vyrhap-Bbmawp Hx Patient Social History Marrital Status: single Tobacco Use?: No Use of E-Cig and/or Vaping dev: Yes E-Cig or Vaping type used: Nicotine Use of E-Cig and/or Vaping Anthony: Current Everyday User Substance use?: No Alcohol Use?: Yes Alcohol type: Beer Alcohol Frequency: Daily (8-10 beers/day) Pt feels they are or have been: No Immunizations Up To Date Tetanus Booster (TDap): Unknown Current Status Advance Directives: No Communicates: Verbally Primary Language: Lao Preferred Spoken Language: Lao Is interpretation needed?: No Implanted or Applied Medical D: None Past Medical History Surgeries: Orthopedic (R Femur Augustine ) Gastroesophageal Reflux, Ulcer Fractures (right femur) Are Your Blood Sugars Over 250: No Anxiety, Depression Review of Systems Constitutional: chills, diaphoresis, weight loss EENTM: No ear discharge, No eye pain Respiratory: No cough; other (tachypnea) Cardiovascular: No edema, No Hx of Intervention Gastrointestinal: abdominal pain (epigastric region), diarrhea, nausea, vomiting, other Genitourinary: No incontinence, No nocturia Musculoskeletal: No joint pain, No muscle pain; muscle twitching Skin: No change in color, No dryness Psychiatric/Neurological: Anxiety, Depressed, Tremors Physical Exam Physical Exam Vital Signs Vital Signs - First Documented 12/27/22 09:50 Temp 36.9 Pulse 101 Resp 99 B/P (MAP) 152/100 (117) Pulse Ox 99 O2 Delivery Room Air Capillary Refill : Less Than 3 Seconds Height, Weight, BMI Height: '" Weight: lbs. oz. kg; 24.00 BMI Method: General Appearance: Severe Distress, Other (very sedated) Eyes: Bilateral Eye Normal Inspection HEENT: TMs Normal; No Photophobia, No Scleral Icterus (L), No Scleral Icterus (R) Neck: Full Range of Motion, Non Tender Respiratory: Lungs Clear, Normal Breath Sounds, No Accessory Muscle Use Cardiovascular: No Edema, Normal Peripheral Pulses, Bradycardia Gastrointestinal: Soft; No Distended, No Guarding Rectal: Deferred Back: No CVA Tenderness, No Vertebral Tenderness Extremity: Normal Capillary Refill, No Pedal Edema Neurologic/Psychiatric: No Alert; Disoriented (hallucinating) Skin: Damp, Pallor; No Petechia, No Rash Lymphatic: No Adenopathy Results Results/Procedures Labs Laboratory Tests 12/27/22 10:15 12/28/22 04:00 Patient resulted labs reviewed. Imaging: Reviewed Imaging Report Assessment/Plan Admission Diagnosis Delirium Tremens due to Severe Alcohol Withdrawal Admission Status: Inpatient Order (span 2 midnights) Reason for Inpatient Admission: Patient needs to be actively monitored for seizures and needs to detox safely. Control of Nausea/Vomitting and abdominal pain. Needs to regain strength, hydration, and nutrition status. Assessment and Plan 1. Delirium Tremens - Lorazepam, Phenobarbitol, Precedex prn - seizure protocol - thiamine replacement 2. Abdominal Pain with intractable vomiting -phenergan 25mg q4h, zofran 4mg q4h, hydomorphone 0.25mg prn, senna, pantoprazole 40mg q12h, calcium carbonate 3. Alcohol Use Disorder - [place] on alcohol cessation - thiamine and folic acid replacement 4. Depression - start fluoxetine when stable 5. Anxiety - start fluoxetine when stable 6. Dehydration - NaCl, KCl, KHCO3 fluid replacement Diagnosis/Problems Diagnosis/Problems (1) Dehydration Status: Acute (2) Epigastric abdominal pain Status: Acute (3) Nausea vomiting and diarrhea Status: Acute (4) Alcohol abuse Status: Chronic (5) Generalized abdominal pain Status: Acute (6) Intractable nausea and vomiting Status: Acute KAIA RAPHAEL MD 12/28/22 1630: History of Present Illness Time Seen by a Provider: 11:20 Past [id number]-[id number]-[id number] Hx Family Medical History No Pertinent Family Hx Assessment/Plan Admission Diagnosis Admission Status: Inpatient Order (span 2 midnights) Reason for Inpatient Admission: IV medications for severe alcohol withdrawal with delirium tremens Assessment and Plan Presented with nausea and vomiting and admitted with alcohol withdrawal. Symptoms worsening since admission required transfer to ICU. Given IV Ativan, IV Phenobarbital, IV Precedex gtt. TeleICU assisting. Critical Care Critically Ill Patient Diagnosis/Problems Diagnosis/Problems (1) Delirium tremens Status: Acute (2) Dehydration Status: Acute (3) Alcohol abuse Status: Chronic (4) Epigastric abdominal pain Status: Acute (5) Generalized abdominal pain Status: Acute (6) Nausea vomiting and diarrhea Status: Acute (7) Intractable nausea and vomiting Status: Acute Supervisory-Addendum Brief Verification & Attestation Participated in pt care: history, MDM, physical Personally performed: exam, history, MDM, supervision of care Care discussed with: Medical Student Procedures: n/a A medical student performed and documented this service in my presence. I reviewed and verified all information documented by the medical student and made modifications to such information, when appropriate. I personally performed the physical exam and medical decision making. PUJA LEE Dec 28, 2022 13:18 KAIA RAPHAEL MD Dec 28, 2022 16:30
[2022-12-28] MEDS: HYDROmorphone INJECTION 2 MG/ML VIAL IVP PRN (16:35)
[2022-12-28] MEDS: DexMEDEtomidine 1,000mcg/250ml 250 ML IV SCH (20:25)
[2022-12-29] MEDS: ONDANSETRON INJECTION 4 MG/2 ML (SDV) IV PRN ×2 (03:49→08:54)
[2022-12-29] MEDS: HYDROmorphone INJECTION 2 MG/ML VIAL IVP PRN (03:49)
[2022-12-29 04:54] LABS: BASOPHILS % (AUTO) 1 % (0-10); EOSINOPHILS # (AUTO) 0.1 10^3/uL (0.0-0.3); EOSINOPHILS % (AUTO) 2 % (0-10); HEMATOCRIT 44 % (40-54); HEMOGLOBIN 14.9 g/dL (13.3-17.7); LYMPHOCYTES % (AUTO) 28 % (12-44); MEAN CORPUSCULAR HEMOGLOBIN 34 pg (25-34); MEAN CORPUSCULAR HGB CONC 34 g/dL (32-36); MEAN CORPUSCULAR VOLUME 99 fL (80-99); MEAN PLATELET VOLUME 9.9 fL (9.0-12.2); MONOCYTES # (AUTO) 0.9 10^3/uL (0.0-1.0); MONOCYTES % (AUTO) 12 % (0-12); NEUTROPHILS # (AUTO) 4.1 10^3/uL (1.8-7.8); NEUTROPHILS % (AUTO) 58 % (42-75); PLATELET COUNT 241 10^3/uL (130-400); WHITE BLOOD COUNT 7.2 10^3/uL (4.3-11.0)
[2022-12-29 05:11] LABS: ALBUMIN 3.9 GM/DL (3.2-4.5); BILIRUBIN,TOTAL 1.1 MG/DL (0.1-1.0); CALCIUM 9.2 MG/DL (8.5-10.1); CREATININE SERUM 0.85 MG/DL (0.60-1.30); MAGNESIUM 1.8 MG/DL (1.6-2.4); PHOSPHORUS 3.2 MG/DL (2.3-4.7); POTASSIUM 3.9 MMOL/L (3.6-5.0); TOTAL PROTEIN 6.7 GM/DL (6.4-8.2)
[2022-12-29] MEDS: LORazepam 1 MG TABLET PO PRN ×2 (05:15→06:44)
[2022-12-29] MEDS: POTASSIUM CL 10MEQ/50ML IVPB 50 ML IV SCH (05:21)
[2022-12-29] MEDS: MAGNESIUM 1 GM/100 ML IVPB 100 ML IV SCH ×3 (05:21→08:55)
[2022-12-29] MEDS: POTASSIUM BICARB 20 MEQ effervescent TABLET PO SCH (05:21)
[2022-12-29] MEDS: POTASSIUM CHLORIDE 20 MEQ TABLET PO SCH (05:22)
[2022-12-29] MEDS ORDERED: POTASSIUM CHLORIDE 20 MEQ TABLET PO ONE (06:30)
[2022-12-29] MEDS: PANTOPRAZOLE INJECTION 40 MG VIAL IV SCH ×2 (08:53→20:08)
[2022-12-29] MEDS: SENNOSIDES 8.6 MG TABLET PO SCH ×2 (08:55→20:31)
[2022-12-29] MEDS: DOCUSATE SODIUM 100 MG CAPSULE PO SCH ×2 (08:55→20:31)
[2022-12-29] MEDS: THIAMINE INJECTION 100 MG, FOLIC ACID INJECTION 1 MG, MAGNESIUM SULFATE 2 GM, MULTIVITA... IV SCH ×5 (08:55)
[2022-12-29] MEDS ORDERED: FLUO20CA48 PO (10:20)
[2022-12-29] MEDS ORDERED: FEXO1TAB40 PO (10:20)
[2022-12-29] MEDS ORDERED: HYDR-700 PO (10:20)
[2022-12-29] MEDS: PROMETHAZINE INJ 25 MG/ML VIAL IVP PRN ×2 (10:34→20:08)
[2022-12-29] MEDS: SUCRALFATE 1 GM TABLET PO SCH ×3 (11:10→20:31)
--- NOTE | 2022-12-29 12:10 | Progress Note - Hospitalist ---
PUJA LEE 12/29/22 1210: Subjective HPI/CC On Admission Date Seen by Provider: Dec 29, 2022 Time Seen by Provider: 09:00 Delirium Tremens due to Severe Alcohol Withdrawal Subjective/Events-last exam Tyrone was awake but not oriented to time or situation. He described having constant pain in RUQ and feelings of coarseness in esophagus. When asked about alcohol use, he reported a 6 pack every now and then, but when pushed by Dr. Raphael he admitted to 18-24pack beer/night. He denied experiencing sx of alcohol withdrawal before. CIWA scores ranged from 6-12 this morning. When asked about his vomiting pre-hospitalization, he described that it was dark brownish-black. CT abdomen and pelvis completed in ED were non-contributory. He is employed in [place] at a [employer]. Family lives in [place]. Review of Systems General: No Chills, No Night Sweats; Appetite HEENT: No Head Aches, No Visual Changes Pulmonary: No Dyspnea, No Cough, No Pleuritic Chest Pain Cardiovascular: No: Chest Pain, Palpitations, Edema Gastrointestinal: Nausea, Abdominal Pain; No: Vomiting Genitourinary: No Dysuria, No Frequency Musculoskeletal: No: neck pain, shoulder pain Neurological: Confusion; No: Weakness, Numbness Focused Exam Respiratory: Chest Non Tender, Lungs Clear, Normal Breath Sounds Cardiovascular: No Edema, No Murmur, Bradycardia Skin: warm/dry; No ecchymosis, No jaundice, No ulcerations Objective Exam Vital Signs Vital Signs Date Time Temp Pulse Resp B/P (MAP) Pulse Ox O2 Delivery O2 Flow Rate FiO2 12/29/22 11:37 36.5 12/29/22 11:00 60 21 98 Room Air Capillary Refill : Less Than 3 Seconds General Appearance: WD/WN, Mild Distress HEENT: PERRL/EOMI; No Photophobia, No Scleral Icterus (L), No Scleral Icterus (R) Neck: Non Tender, Supple Respiratory: Chest Non Tender, Lungs Clear, Normal Breath Sounds, No Accessory Muscle Use, No Respiratory Distress Cardiovascular: No Edema, No Murmur, Bradycardia Gastrointestinal: Soft; No Abnormal Bowel Sounds, No Guarding; Tenderness (RUQ sharp pain) Rectal: Deferred Back: No CVA Tenderness, No Vertebral Tenderness Extremity: Normal Capillary Refill, No Pedal Edema; No Calf Tenderness Neurologic/Psychiatric: Alert, Disoriented Skin: Normal Color, Warm/Dry; No Ecchymosis, No Erythema, No Petechia Lymphatic: No Adenopathy Results/Procedures Lab Laboratory Tests 12/29/22 04:34 Patient resulted labs reviewed. Imaging: Reviewed Imaging Report Assessment/Plan Assessment and Plan Assess & Plan/Chief Complaint 1. Delirium Tremens - Lorazepam, Phenobarbitol prn - hold precedex - seizure protocol - thiamine replacement 2. Abdominal Pain with intractable vomiting -phenergan 25mg q4h, zofran 4mg q4h, hydomorphone 0.25mg prn, senna, pantoprazole 40mg q12h, calcium carbonate - Add Carafate 3. Alcohol Use Disorder - [place] on alcohol cessation - thiamine and folic acid replacement 4. Depression - start fluoxetine when stable 5. Anxiety - start fluoxetine when stable 6. Dehydration - NaCl, KCl, KHCO3 fluid replacement Diagnosis/Problems Diagnosis/Problems (1) Dehydration Status: Acute (2) Epigastric abdominal pain Status: Acute (3) Nausea vomiting and diarrhea Status: Acute (4) Alcohol abuse Status: Chronic (5) Generalized abdominal pain Status: Acute (6) Intractable nausea and vomiting Status: Acute KAIA RAPHAEL MD 12/29/22 1708: Subjective HPI/CC On Admission Time Seen by Provider: 09:50 Assessment/Plan Assessment and Plan Assess & Plan/Chief Complaint Continue alcohol withdrawal protocol. Symptoms improved but persistant. Requiring Precedex this morning, continue ICU care. Critical Care: Critically Ill Patient Diagnosis/Problems Diagnosis/Problems (1) Delirium tremens Status: Acute (2) Alcohol withdrawal Status: Acute Qualifiers: Qualified Codes: F10.932 - Alcohol use, unspecified with withdrawal with perceptual disturbance Supervisory-Addendum Brief Verification & Attestation Participated in pt care: history, MDM, physical Personally performed: exam, history, MDM, supervision of care Care discussed with: Medical Student Procedures: n/a A medical student performed and documented this service in my presence. I reviewed and verified all information documented by the medical student and made modifications to such information, when appropriate. I personally performed the physical exam and medical decision making. PUJA LEE Dec 29, 2022 12:10 AKIA RAPHAEL MD Dec 29, 2022 17:08
--- NOTE | 2022-12-29 12:14 | Tele-ICU Progress Note ---
Subjective Date Seen by a Provider: Dec 29, 2022 Subjective/Events-last exam This virtual visit was conducted using real time audio/video. Thank you for asking us to see this patient for critical care services due to alcohol withdrawal. Recent events: Had to resume Precedex earlier today. PE: Currently asleep. VSS. O2 sat 95% on RA. HEENT: No obvious masses, adenopathy or JVD. Chest: clear to auscultation. CV: RRR S1 S2 No murmur or added sounds. Abd: Non-tender. Bowel sounds Y. : Unremarkable. Goode N. ELECTRONIC DEVICE REPAIRER/psychiatric: Grossly intact. No obvious focal findings. Extremities: No edema. Capillary refill < 3 seconds. Skin: unremarkable. Results: CT abd unremarkable. Available chart/ vitals / labs / images reviewed. Video assessment done using teleICU camera, rest of exam as per RN. A/P: Critical Care: critically ill patient. Cont. Precedex and CIWA. Discussed with RN Ana. Asked RN to reach out to eICU if any questions or concerns later. Time spent with patient/coordination of care with other health professionals (mins): 20 Sepsis Event Evaluation Height, Weight, BMI Height: '" Weight: lbs. oz. kg; 24.00 BMI Method: Exam Exam Patient acknowledged, consented, and participated in this virtual visit which was conducted using real time audio/video Vital Signs Date Time Temp Pulse Resp B/P (MAP) Pulse Ox O2 Delivery O2 Flow Rate FiO2 12/29/22 12:00 52 24 144/101 (115) 99 Room Air 12/29/22 11:37 36.5 12/29/22 11:00 60 21 139/91 (106) 98 Room Air 12/29/22 10:00 79 19 139/90 (106) 100 Room Air 12/29/22 09:00 80 14 106/78 (91) 100 Room Air 12/29/22 08:00 68 30 135/76 (88) 100 Room Air 12/29/22 08:00 Room Air 12/29/22 07:23 36.5 12/29/22 07:00 53 12/29/22 07:00 52 126/81 (99) 97 Room Air 12/29/22 06:00 57 22 127/85 (99) 98 Room Air 12/29/22 05:00 46 116/67 (83) 97 Room Air 12/29/22 04:27 Room Air 12/29/22 04:17 51 113/82 (91) 97 Room Air 12/29/22 04:15 53 96 Room Air 12/29/22 04:00 58 125/77 (92) 97 Room Air 12/29/22 03:45 120/85 (97) 12/29/22 03:30 51 126/93 (99) 96 Room Air 12/29/22 03:15 48 125/88 (104) 96 Room Air 12/29/22 03:00 51 128/90 (105) 96 Room Air 12/29/22 01:15 51 150/105 (124) 95 Room Air 12/29/22 01:00 51 152/103 (124) 96 Room Air 12/29/22 01:00 50 12/29/22 00:48 146/119 (139) 12/29/22 00:45 53 158/102 (127) 95 Room Air 12/29/22 00:30 49 144/99 (120) 96 Room Air 12/29/22 00:25 51 144/100 12/29/22 00:15 50 144/100 (123) 96 Room Air 12/29/22 00:01 Room Air 12/29/22 00:00 37.1 50 144/99 (116) 95 Room Air 12/28/22 23:45 49 142/99 (120) 95 Room Air 12/28/22 23:30 50 137/102 (116) 97 Room Air 12/28/22 23:15 49 135/92 (112) 96 Room Air 12/28/22 23:00 49 132/90 (111) 95 Room Air 12/28/22 22:45 51 132/90 (106) 96 Room Air 12/28/22 22:30 51 131/86 (103) 95 Room Air 12/28/22 22:15 48 125/90 (101) 95 Room Air 12/28/22 22:00 51 127/82 (90) 90 Room Air 12/28/22 21:45 65 136/84 (91) 96 Room Air 12/28/22 21:30 138/86 (107) 97 Room Air 12/28/22 21:15 69 161/72 (138) 98 Room Air 12/28/22 21:00 76 117/55 (67) 96 Room Air 12/28/22 20:45 84 108/93 (98) 96 Room Air 12/28/22 20:30 75 115/84 (92) 95 Room Air 12/28/22 20:25 65 126/96 12/28/22 20:20 Room Air 12/28/22 20:15 55 126/96 (104) 96 Room Air 12/28/22 20:00 62 116/79 (97) 97 Room Air 12/28/22 19:45 65 128/86 (102) 95 Room Air 12/28/22 19:30 86 125/89 (97) Room Air 12/28/22 19:15 86 121/81 (101) 95 Room Air 12/28/22 19:10 37.0 12/28/22 19:00 72 131/109 (116) 98 Room Air 12/28/22 19:00 60 12/28/22 18:00 66 20 126/118 (121) 98 Room Air 12/28/22 17:00 73 20 127/86 (100) 98 Room Air 12/28/22 16:00 Room Air 12/28/22 16:00 Room Air 12/28/22 16:00 70 20 123/87 (99) 99 Room Air 12/28/22 15:01 36.7 12/28/22 15:00 67 20 114/91 (99) 96 Room Air 12/28/22 13:00 60 17 101/84 (90) 96 Room Air I & O 12/29/22 07:00 Intake Total 3610.4 ml Output Total 3025 ml Balance 585.4 ml Height & Weight Height: '" Weight: lbs. oz. kg; 24.00 BMI Method: General Appearance: Severe Distress, Other (very sedated) HEENT: TMs Normal; No Photophobia, No Scleral Icterus (L), No Scleral Icterus (R) Neck: Full Range of Motion, Non Tender Respiratory: Lungs Clear, Normal Breath Sounds, No Accessory Muscle Use Cardiovascular: No Edema, Normal Peripheral Pulses, Bradycardia Capillary Refill: Less Than 3 Seconds Gastrointestinal: soft, no organomegaly, no pulsatile mass, abnormal bowel sounds (hyperactive), tenderness (diffuse); No hepatomegaly, No spleenomegaly Extremity: Normal Capillary Refill, No Pedal Edema Neurologic/Psychiatric: No Alert; Disoriented (hallucinating) Skin: Damp, Pallor; No Petechia, No Rash Lymphatic: No Adenopathy Results Lab Laboratory Tests 12/28/22 04:00 12/29/22 04:34 Assessment/Plan Assessment/Plan See free text. Critical Care: Critically Ill Patient MARLENE CORADO MD Dec 29, 2022 12:14
[2022-12-29] MEDS: DexMEDEtomidine 1,000mcg/250ml 250 ML IV SCH (21:54)
[2022-12-30 04:23] LABS: BASOPHILS % (AUTO) 0 % (0-10); EOSINOPHILS # (AUTO) 0.1 10^3/uL (0.0-0.3); EOSINOPHILS % (AUTO) 1 % (0-10); HEMATOCRIT 43 % (40-54); HEMOGLOBIN 15.2 g/dL (13.3-17.7); LYMPHOCYTES # (AUTO) 1.6 10^3/uL (1.0-4.0); LYMPHOCYTES % (AUTO) 18 % (12-44); MEAN CORPUSCULAR HEMOGLOBIN 34 pg (25-34); MEAN CORPUSCULAR HGB CONC 35 g/dL (32-36); MEAN CORPUSCULAR VOLUME 98 fL (80-99); MEAN PLATELET VOLUME 10.1 fL (9.0-12.2); MONOCYTES % (AUTO) 12 % (0-12); NEUTROPHILS # (AUTO) 6.2 10^3/uL (1.8-7.8); NEUTROPHILS % (AUTO) 69 % (42-75); PLATELET COUNT 262 10^3/uL (130-400); WHITE BLOOD COUNT 9.1 10^3/uL (4.3-11.0)
[2022-12-30 04:34] LABS: POTASSIUM 3.5 MMOL/L (3.6-5.0)
[2022-12-30 04:40] LABS: CREATININE SERUM 0.9 MG/DL (0.60-1.30)
[2022-12-30 04:43] LABS: MAGNESIUM 1.7 MG/DL (1.6-2.4)
[2022-12-30] MEDS: POTASSIUM CL 10MEQ/50ML IVPB 50 ML IV SCH ×5 (06:41→10:38)
[2022-12-30] MEDS: POTASSIUM CHLORIDE 20 MEQ TABLET PO SCH (06:41)
[2022-12-30] MEDS: POTASSIUM BICARB 20 MEQ effervescent TABLET PO SCH (06:41)
[2022-12-30] MEDS: MAGNESIUM 1 GM/100 ML IVPB 100 ML IV SCH ×5 (06:41→10:38)
[2022-12-30] MEDS: THIAMINE 100 MG (VITAMIN B-1) TAB PO SCH (06:42)
[2022-12-30] MEDS: THERAPEUTIC MULTIVITAMIN W/MINERALS TABLET PO SCH (06:42)
[2022-12-30] MEDS: SUCRALFATE 1 GM TABLET PO SCH ×4 (06:42→20:00)
[2022-12-30] MEDS: DOCUSATE SODIUM 100 MG CAPSULE PO SCH ×2 (08:14→20:44)
[2022-12-30] MEDS: SENNOSIDES 8.6 MG TABLET PO SCH ×2 (08:14→20:44)
[2022-12-30] MEDS ORDERED: POTASSIUM CHLORIDE 20 MEQ TABLET PO ONE (08:45)
[2022-12-30] MEDS ORDERED: MAGNESIUM OXIDE 400 MG TABLET PO SCH (09:00)
[2022-12-30] MEDS: FOLIC ACID 1 MG TAB PO SCH (09:05)
[2022-12-30] MEDS: PANTOPRAZOLE INJECTION 40 MG VIAL IV SCH ×2 (09:06→20:03)
--- NOTE | 2022-12-30 10:34 | Tele-ICU Progress Note ---
Subjective Date Seen by a Provider: Dec 30, 2022 Time Seen by a Provider: 10:34 Subjective/Events-last exam (Tele-ICU Physician , Progress Note ) Service provided via interactive audio and video telecommunications E-CARE system to a patient admitted to ICU bed in [facility]. Patient is seen today due to persistent need of ICU care Available chart/ vitals / labs / Images reviewed Video assessment done using teleICU camera, rest of exam as per RN Discussed with RN Events overnight : Afebrile hemodynamically stable Respiratory - I/O = Drips: Pressors- no Hospital course: (12/27) 27M Admitted for intractable nausea/vomting. Alcohol abuse, HTN. CIWA for alcohol withdrawal. CT abd: non obstructing right renal stone A/P ETOH wothdrawal - better , last benzo 24 h ago - monitor Lines : p , (Central Line Necessity Reviewed) Goode: OG: Nutrition: po Analgesia: Anxiety/ delirium VTE Prophylaxis: ambulate Stress Ulcer Prophylaxis: Plans in collaboration with bedside consultants and IM MDs. Discussed with RN to reach out if any questions or concerns Case and care daily discussed on multidisciplinary rounds ( RN, PharmD, Medical Office Rep , Respiratory Therapy, casino gaming worker ) A total of _5 minutes of critical care time was devoted to this patient today, required to treat and/or prevent further deterioration of critical care condition ( as above ) . I am remotely monitoring this patient from another state. I am unable to do the bedside exam, and history/physical and pertinent information is taken from other notes in the computer and bedside staff. Sepsis Event Evaluation Height, Weight, BMI Height: '" Weight: lbs. oz. kg; 24.38 BMI Method: Exam Exam Patient acknowledged, consented, and participated in this virtual visit which was conducted using real time audio/video Vital Signs Date Time Temp Pulse Resp B/P (MAP) Pulse Ox O2 Delivery O2 Flow Rate FiO2 12/30/22 09:00 82 15 98 Room Air 12/30/22 08:00 71 97 Room Air 12/30/22 08:00 100 Room Air 12/30/22 07:48 36.8 12/30/22 07:00 46 12/30/22 07:00 46 99 Room Air 12/30/22 06:00 49 98 Room Air 12/30/22 05:30 49 162/104 (123) 99 Room Air 12/30/22 04:00 59 132/91 (105) 98 Room Air 12/30/22 03:52 100 Room Air 12/30/22 03:00 48 26 140/96 (111) 98 Room Air 12/30/22 02:00 48 140/96 12/30/22 02:00 66 29 116/70 (85) 98 Room Air 12/30/22 01:00 46 12/30/22 01:00 48 137/99 (112) 98 Room Air 12/30/22 00:00 45 149/92 (111) 98 Room Air 12/30/22 00:00 36.7 Room Air 12/30/22 00:00 36.7 12/29/22 23:30 47 143/11 12/29/22 23:25 100 Room Air 12/29/22 23:00 51 159/109 (126) 99 Room Air 12/29/22 22:45 37.1 12/29/22 22:00 62 138/86 (103) 100 Room Air 12/29/22 21:54 80 116/80 12/29/22 21:15 68 122/62 12/29/22 21:00 37.2 12/29/22 21:00 62 16 116/80 (92) 93 Room Air 12/29/22 20:00 100 Room Air 12/29/22 20:00 46 37 129/81 (97) 100 Room Air 12/29/22 19:00 52 20 130/84 (99) 98 Room Air 12/29/22 19:00 52 12/29/22 18:00 56 19 128/84 (99) 100 Room Air 12/29/22 17:00 55 18 145/87 (106) 100 Room Air 12/29/22 16:33 37.0 12/29/22 16:00 Room Air 12/29/22 16:00 56 18 139/89 (106) 99 Room Air 12/29/22 15:00 54 22 146/94 (111) 100 Room Air 12/29/22 14:00 54 25 150/103 (119) 99 Room Air 12/29/22 13:00 51 25 148/101 (117) 99 Room Air 12/29/22 12:17 54 12/29/22 12:00 52 24 144/101 (115) 99 Room Air 12/29/22 12:00 Room Air 12/29/22 11:37 36.5 12/29/22 11:00 60 21 139/91 (106) 98 Room Air l I & O 12/30/22 07:00 Intake Total 2970.2 ml Output Total 4200 ml Balance -1229.8 ml Height & Weight Height: '" Weight: lbs. oz. kg; 24.38 BMI Method: General Appearance: WD/WN, Mild Distress HEENT: PERRL/EOMI; No Photophobia, No Scleral Icterus (L), No Scleral Icterus (R) Neck: Non Tender, Supple Respiratory: Chest Non Tender, Lungs Clear, Normal Breath Sounds, No Accessory Muscle Use, No Respiratory Distress Cardiovascular: No Edema, No Murmur, Bradycardia Capillary Refill: Less Than 3 Seconds Gastrointestinal: soft, no organomegaly, no pulsatile mass, abnormal bowel sounds (hyperactive), tenderness (diffuse); No hepatomegaly, No spleenomegaly Extremity: Normal Capillary Refill, No Pedal Edema; No Calf Tenderness Neurologic/Psychiatric: Alert, Disoriented Skin: Normal Color, Warm/Dry; No Ecchymosis, No Erythema, No Petechia Lymphatic: No Adenopathy Results Lab Laboratory Tests 12/29/22 04:34 12/30/22 04:07 Assessment/Plan Assessment/Plan 1 JUDSON JARRELL MD Dec 30, 2022 10:34
[2022-12-30] MEDS: ACETAMINOPHEN 325 MG TABLET PO PRN ×2 (10:40→20:00)
[2022-12-30] MEDS: ONDANSETRON INJECTION 4 MG/2 ML (SDV) IV PRN (10:54)
[2022-12-30] MEDS: PROMETHAZINE INJ 25 MG/ML VIAL IVP PRN (11:43)
[2022-12-30] MEDS ORDERED: cloNIDine 0.1 MG TABLET PO SCH (13:00)
--- NOTE | 2022-12-30 14:00 | Progress Note - Hospitalist ---
PUJA LEE 12/30/22 1359: Subjective HPI/CC On Admission Date Seen by Provider: Dec 30, 2022 Time Seen by Provider: 08:30 Delirium Tremens due to Severe Alcohol Withdrawal Subjective/Events-last exam Tyrone was awake and alert this morning. He was not oriented to time. Apparently he was verbally aggressive with girlfriend and nurse last night. When I spoke with him he seemed confused and combative. He had refused PO medications last night. We spoke about how the medications he refused will actually make his stomach feel better. He agreed to take them. He is still complaining of abdo hallie pain in RUQ and epigastric region. Rates pain 7/10. Being given Tylenol for this. Tyrone denied tremors. CIWA scores have ranged from 1-13 this morning. He was hypertensive when Dr. Raphael saw him this morning - 160s/100s. He explained that he has been hypertensive when he saw his doctor and when he was in the ED. Will likely start on clonidine. Was eating breakfast this morning. He had a bowel movement and has had adequate urine output. Review of Systems General: No Chills, No Night Sweats, No Fatigue HEENT: No Head Aches, No Visual Changes Pulmonary: No Dyspnea, No Cough Cardiovascular: No: Chest Pain, Palpitations, Edema Gastrointestinal: Nausea, Abdominal Pain (RUQ and epigastric regions), Diarrhea; No: Vomiting Genitourinary: No Dysuria, No Frequency Musculoskeletal: No: neck pain, shoulder pain Neurological: Confusion; No: Numbness, Seizures Focused Exam Respiratory: Chest Non Tender, Lungs Clear, Normal Breath Sounds, No Accessory Muscle Use, No Respiratory Distress Cardiovascular: Regular Rate, Rhythm, No Edema Skin: warm/dry; No ulcerations, No rash on exposed areas Objective Exam Vital Signs Vital Signs Date Time Temp Pulse Resp B/P (MAP) Pulse Ox O2 Delivery O2 Flow Rate FiO2 12/30/22 13:00 75 22 96 Room Air 12/30/22 12:03 37.4 Capillary Refill : Less Than 3 Seconds General Appearance: Anxious HEENT: PERRL/EOMI, TMs Normal; No Scleral Icterus (L), No Scleral Icterus (R) Neck: Full Range of Motion, Non Tender, Supple Respiratory: Chest Non Tender, Lungs Clear, Normal Breath Sounds, No Accessory Muscle Use Cardiovascular: Regular Rate, Rhythm, No Edema Gastrointestinal: Normal Bowel Sounds; No Distended, No Guarding; Tenderness (RUQ, epigastric region) Rectal: Deferred Back: No CVA Tenderness, No Vertebral Tenderness Extremity: Normal Capillary Refill, No Pedal Edema Neurologic/Psychiatric: Alert, Disoriented, Other (agitated) Skin: Warm/Dry; No Ecchymosis, No Jaundice, No Petechia Lymphatic: No Adenopathy Results/Procedures Lab Laboratory Tests 12/30/22 04:07 Patient resulted labs reviewed. Imaging: Reviewed Imaging Report Assessment/Plan Assessment and Plan Assess & Plan/Chief Complaint 1. Delirium Tremens - Lorazepam, Phenobarbitol prn - seizure protocol - thiamine replacement 2. Abdominal Pain with intractable vomiting -phenergan, zofran, senna, pantoprazole, calcium carbonate, carafate, Tylenol 3. Alcohol Use Disorder - [place] on alcohol cessation - thiamine and folic acid replacement 4. Hypertension clonidine 0.1mg TID 5. Depression - start fluoxetine when stable 6. Anxiety - start fluoxetine when stable 7. Dehydration - NaCl, KCl, KHCO3 fluid replacement Time spent with patient (mins): 15 Diagnosis/Problems Diagnosis/Problems (1) Dehydration Status: Acute (2) Epigastric abdominal pain Status: Acute (3) Nausea vomiting and diarrhea Status: Acute (4) Alcohol abuse Status: Chronic (5) Generalized abdominal pain Status: Acute (6) Intractable nausea and vomiting Status: Acute KAIA RAPHAEL MD 12/30/22 1922: Subjective HPI/CC On Admission Time Seen by Provider: 10:10 Assessment/Plan Assessment and Plan Assess & Plan/Chief Complaint Continue alcohol withdrawal protocol. Add clonidine due to hypertension. Diagnosis/Problems Diagnosis/Problems (1) Delirium tremens Status: Acute (2) Alcohol withdrawal Status: Acute Qualifiers: Qualified Codes: F10.932 - Alcohol use, unspecified with withdrawal with perceptual disturbance (3) Dehydration Status: Acute (4) Epigastric abdominal pain Status: Acute (5) Nausea vomiting and diarrhea Status: Acute (6) Alcohol abuse Status: Chronic (7) Generalized abdominal pain Status: Acute (8) Intractable nausea and vomiting Status: Acute Supervisory-Addendum Brief Verification & Attestation Participated in pt care: history, MDM, physical Personally performed: exam, history, MDM, supervision of care Care discussed with: Medical Student Procedures: n/a A medical student performed and documented this service in my presence. I reviewed and verified all information documented by the medical student and made modifications to such information, when appropriate. I personally performed the physical exam and medical decision making. PUJA LEE Dec 30, 2022 13:59 KAIA RAPHAEL MD Dec 30, 2022 19:22
[2022-12-30] MEDS: PROCHLORPERAZINE INJ 10 MG/2ML VIAL IV PRN ×2 (14:37→20:03)
[2022-12-30] MEDS ORDERED: cloNIDine 0.1 MG TABLET PO PRN (19:30)
[2022-12-30] MEDS: HYDROmorphone INJECTION 2 MG/ML VIAL IVP PRN (20:28)
[2022-12-30] MEDS: LORazepam 1 MG TABLET PO PRN (23:33)
[2022-12-31] MEDS: ACETAMINOPHEN 325 MG TABLET PO PRN ×3 (01:44→22:01)
[2022-12-31] MEDS: HYDROmorphone INJECTION 2 MG/ML VIAL IVP PRN (03:07)
[2022-12-31 04:52] LABS: BASOPHILS % (AUTO) 0 % (0-10); EOSINOPHILS # (AUTO) 0.1 10^3/uL (0.0-0.3); EOSINOPHILS % (AUTO) 2 % (0-10); HEMATOCRIT 42 % (40-54); HEMOGLOBIN 14.2 g/dL (13.3-17.7); LYMPHOCYTES # (AUTO) 1.6 10^3/uL (1.0-4.0); LYMPHOCYTES % (AUTO) 21 % (12-44); MEAN CORPUSCULAR HEMOGLOBIN 33 pg (25-34); MEAN CORPUSCULAR HGB CONC 34 g/dL (32-36); MEAN CORPUSCULAR VOLUME 98 fL (80-99); MEAN PLATELET VOLUME 9.9 fL (9.0-12.2); MONOCYTES % (AUTO) 14 % (0-12); NEUTROPHILS # (AUTO) 4.7 10^3/uL (1.8-7.8); NEUTROPHILS % (AUTO) 63 % (42-75); PLATELET COUNT 235 10^3/uL (130-400); WHITE BLOOD COUNT 7.5 10^3/uL (4.3-11.0)
[2022-12-31 05:18] LABS: CALCIUM 8.6 MG/DL (8.5-10.1); CREATININE SERUM 0.85 MG/DL (0.60-1.30); MAGNESIUM 1.5 MG/DL (1.6-2.4); POTASSIUM 3.3 MMOL/L (3.6-5.0)
[2022-12-31] MEDS: MAGNESIUM 1 GM/100 ML IVPB 100 ML IV SCH ×5 (05:43→08:14)
[2022-12-31] MEDS: POTASSIUM BICARB 20 MEQ effervescent TABLET PO SCH (05:43)
[2022-12-31] MEDS: POTASSIUM CHLORIDE 20 MEQ TABLET PO SCH ×4 (05:43→12:07)
[2022-12-31] MEDS: POTASSIUM CL 10MEQ/50ML IVPB 50 ML IV SCH (05:43)
[2022-12-31] MEDS: THIAMINE 100 MG (VITAMIN B-1) TAB PO SCH (06:00)
[2022-12-31] MEDS: SUCRALFATE 1 GM TABLET PO SCH ×4 (06:00→19:45)
[2022-12-31] MEDS: THERAPEUTIC MULTIVITAMIN W/MINERALS TABLET PO SCH (06:00)
[2022-12-31] MEDS: DOCUSATE SODIUM 100 MG CAPSULE PO SCH ×2 (07:45→19:46)
[2022-12-31] MEDS: SENNOSIDES 8.6 MG TABLET PO SCH ×2 (07:46→19:46)
[2022-12-31] MEDS: ONDANSETRON INJECTION 4 MG/2 ML (SDV) IV PRN (08:22)
[2022-12-31] MEDS: FOLIC ACID 1 MG TAB PO SCH (08:22)
[2022-12-31] MEDS: PANTOPRAZOLE INJECTION 40 MG VIAL IV SCH ×2 (08:22→19:46)
[2022-12-31] MEDS: LORazepam 1 MG TABLET PO PRN ×2 (08:50→19:45)
[2022-12-31] MEDS: PROMETHAZINE INJ 25 MG/ML VIAL IVP PRN (11:59)
[2022-12-31] MEDS ORDERED: FAMOTIDINE INJ 20MG/2ML VIAL IVP NR (12:00)
--- NOTE | 2022-12-31 12:19 | Consultation - Surgery ---
LIZZETHIBIS ABURTO 12/31/22 1219: History of Present Illness History of Present Illness Patient Consulted On(jin/time) 12/31/22 12:05 Date Seen by Provider: Dec 31, 2022 Time Seen by Provider: 11:30 Reason for Visit: Abdominal pain, epigastric pain, gastritis History of Present Illness This is a 27-year-old male who presented to the ED with 2 weeks of abdominal pain and vomiting. Pain starts in his epigastric region and radiates towards the lower quadrants. Rates it as a 8/10. Has tried antacids, which has helped, along with vomiting. Certain foods make it worse. Pain does not radiate anywhere. Has a hx of ulcer when he was 10 years old. Patient vapes everyday and states that he drinks 8-10 bud lights per day. His significant other told Dr. Moy that the patient has been drinking 20-30 beers per day for the last 4 days. He will go on-off with 12 packs for a time, than increase his intake up to a 30 pack, then back down to a 12 pack. No recreational drug usage. No NSAID usage. CT imaging: No acute abnormality is identified. Nonobstructing right renal calculus measures 0.3 cm in size. Allergies and Home Medications Allergies Coded Allergies: No Known Drug Allergies (Unverified , 12/20/22) Patient Home Medication List Home Medication List Reviewed: Yes Fexofenadine/Pseudoephedrine (Beba-D 12 Hour Tablet) 60 Mg-120 Mg Tab.er.12h, 1 EACH PO Q12H PRN for ALLERGY SYMPTOMS, (Reported) Entered as Reported by: ESDRAS MAIER on 12/29/22 1020 Last Action: Reviewed Fluoxetine HCl (Fluoxetine HCl) 20 Mg Capsule, 20 MG PO DAILY, (Reported) Entered as Reported by: ESDRAS MAIER on 12/29/22 1020 Last Action: Reviewed Hydroxyzine HCl (Hydroxyzine HCl) 25 Mg Tablet, 25 MG PO BID PRN for BREAKTHROUGH PANIC ATTACK, (Reported) Entered as Reported by: ESDRAS MAIER on 12/29/22 1020 Last Action: Reviewed Discontinued Medications Fluoxetine HCl (Fluoxetine Dr) 90 Mg Capsule.dr, Unknown Dose PO, (Reported) Discontinued Reason: No Longer Taking Entered as Reported by: PINO JURADO on 12/20/22 0114 Last Action: Discontinued Ondansetron (Ondansetron Odt) 4 Mg Tab.rapdis, 4 MG PO Q6H PRN for NAUSEA/VOMITING Discontinued Reason: No Longer Taking Prescribed by: PATRICIA NEWMAN on 12/20/227 Last Action: Discontinued Past Oysylyo-Uhytmi-Jlcwex Hx Patient Social History Smoking Status: Current Everyday Smoker Type Used: Electronic/Vapor Alcohol Use?: Yes (See HPI) Surgeries History of Surgeries: Yes Surgeries: Orthopedic (R Femur Augustine ) Respiratory History of Respiratory Disorde: No Cardiovascular History of Cardiac Disorders: No Neurological History of Neurological Disord: No Gastrointestinal History of Gastrointestinal Di: Yes Gastrointestinal Disorders: Gastroesophageal Reflux, Ulcer Musculoskeletal History of Musculoskeletal Dis: Yes Musculoskeletal Disorders: Fractures (right femur) Psychosocial History of Psychiatric Problem: Yes Behavioral Health Disorders: Anxiety, Depression Family Medical History Significant Family History: No Pertinent Family Hx Review of Systems-General Constitutional: No chills, No fever EENTM: No eye pain, No mouth pain Respiratory: cough (Says due to his pain); No short of breath Cardiovascular: chest pain (Says due to his pain); No edema Gastrointestinal: abdominal pain (Epigastric, radiates to lower quadrants); No nausea (No nausea on visit); vomiting (No vomiting today) Genitourinary: No decreased output, No discharge Musculoskeletal: No back pain, No joint pain Skin: No change in color, No dryness Psychiatric/Neurological: Anxiety, Tremors Physical Exam-General Problems Physical Exam Vital Signs Vital Signs - First Documented 12/27/22 09:50 Temp 36.9 Pulse 101 Resp 99 B/P (MAP) 152/100 (117) Pulse Ox 99 O2 Delivery Room Air Capillary Refill : Less Than 3 Seconds General Appearance: WD/WN, moderate distress Eyes: Bilateral Eye Normal Inspection, Bilateral Eye PERRL, Bilateral Eye EOMI HEENT: PERRL/EOMI, pharyngeal erythema Neck: non-tender, supple, normal inspection Respiratory: chest non-tender, lungs clear, normal breath sounds, no respiratory distress, no accessory muscle use Cardiovascular: regular rate, rhythm, no edema, no murmur Peripheral Pulses: 2+ Carotid (R), 2+ Carotid (L), 2+ Radial Pulses (R), 2+ Radial Pulses (L) Gastrointestinal: normal bowel sounds, abnormal bowel sounds (Hyperactive bowel sounds), guarding, tenderness (Epigastric, lower quadrants) Extremities: non-tender, normal inspection Neurologic/Psychiatric: alert, normal mood/affect Skin: normal color, warm/dry Lymphatic: no adenopathy (Mental, submandibular, anterior cervical) Data Review Labs Laboratory Tests 12/31/22 04:36: White Blood Count 7.5, Red Blood Count 4.25L, Hemoglobin 14.2, Hematocrit 42, Mean Corpuscular Volume 98, Mean Corpuscular Hemoglobin 33, Mean Corpuscular He moglobin Concent 34, Red Cell Distribution Width 11.2, Platelet Count 235, Mean Platelet Volume 9.9, Immature Granulocyte % (Auto) 0, Neutrophils (%) (Auto) 63, Lymphocytes (%) (Auto) 21, Monocytes (%) (Auto) 14H, Eosinophils (%) (Auto) 2, Basophils (%) (Auto) 0, Neutrophils # (Auto) 4.7, Lymphocytes # (Auto) 1.6, Monocytes # (Auto) 1.0, Eosinophils # (Auto) 0.1, Basophils # (Auto) 0.0, Immature Granulocyte # (Auto) 0.0, Sodium Level 139, Potassium Level 3.3L, Chlor marlen Level 105, Carbon Dioxide Level 22, Anion Gap 12, Blood Urea Nitrogen 5L, Creatinine 0.85, Estimat Glomerular Filtration Rate 121, BUN/Creatinine Ratio 6, Glucose Level 91, Calcium Level 8.6, Magnesium Level 1.5L Assessment/Plan Assessment/Plan Assessment/Plan Acute gastritis secondary to alcohol usage Nausea & vomiting Alcohol withdrawal Alcohol abuse Protonix Carafate Pepcid Supportive care CASSIE MOY DO 12/31/22 1419: History of Present Illness History of Present Illness History of Present Illness Consult requested by Dr. Restrepo for abdominal pain. Patient is a 27 year old male who has been ha8-10 vign epigastric pain that moves into the lower abdomen. Also with nausea and vomiting as well. Moderate to severe pain. Has history of ulcer years ago for pain similar. This time has been going on for about 2 weeks or so. Has significant drinking history. He reports about 8-10 beer a night for last 6 months but significant other reports about 20-30 beers sometimes. Has tried multiple medications for gastritis/ulcer with no help thus far. Had recent ct with non-obstruction renal stone. Allergies and Home Medications Allergies Coded Allergies: No Known Drug Allergies (Unverified , 12/20/22) Patient Home Medication List Home Medication List Reviewed: Yes Fexofenadine/Pseudoephedrine (Beba-D 12 Hour Tablet) 60 Mg-120 Mg Tab.er.12h, 1 EACH PO Q12H PRN for ALLERGY SYMPTOMS, (Reported) Entered as Reported by: ESDRAS MAIER on 12/29/22 1020 Last Action: Reviewed Fluoxetine HCl (Fluoxetine HCl) 20 Mg Capsule, 20 MG PO DAILY, (Reported) Entered as Reported by: ESDRAS MAIER on 12/29/22 1020 Last Action: Reviewed Hydroxyzine HCl (Hydroxyzine HCl) 25 Mg Tablet, 25 MG PO BID PRN for BREAKTHRO UGH PANIC ATTACK, (Reported) Entered as Reported by: ESDRAS MAIER on 12/29/22 1020 Last Action: Reviewed Discontinued Medications Fluoxetine HCl (Fluoxetine Dr) 90 Mg Capsule.dr, Unknown Dose PO, (Reported) Discontinued Reason: No Longer Taking Entered as Reported by: PINO JURADO on 12/20/22 0114 Last Action: Discontinued Ondansetron (Ondansetron Odt) 4 Mg Tab.rapdis, 4 MG PO Q6H PRN for NAUSEA/VOMITING Discontinued Reason: No Longer Taking Prescribed by: PATRICIA NEWMAN on 12/20/22 0237 Last Action: Discontinued Past Iesyfoc-Gscdzm-Wllnpu Hx Reviewed Nursing Assessment Reviewed/Agree w Nursing PMH: Yes Family Medical History Significant Family History: No Pertinent Family Hx Review of Systems-General Constitutional: No chills, No fever Respiratory: No dyspnea on exertion, No short of breath Cardiovascular: chest pain (Says due to his pain); No edema Gastrointestinal: abdominal pain (Epigastric, radiates to lower quadrants), nausea (No nausea on visit), vomiting (No vomiting today) Genitourinary: No decreased output, No discharge Musculoskeletal: No back pain, No joint pain Skin: No change in color, No change in hair/nails Psychiatric/Neurological: Anxiety; Denies Depressed, Denies Emotional Problems All Other Systems Reviewed Negative Unless Noted: Yes (Negative excepted noted.) Physical Exam-General Problems Physical Exam General Appearance: WD/WN, no apparent distress HEENT: PERRL/EOMI, normal ENT inspection Neck: non-tender, supple Respiratory: chest non-tender, no respiratory distress, no accessory muscle use Cardiovascular: regular rate, rhythm, no JVD Gastrointestinal: soft; No guarding; tenderness (Epigastric, minimal ) Rectal: deferred Back: normal inspection, no CVA tenderness Extremities: non-tender, normal inspection Neurologic/Psychiatric: alert, normal mood/affect, oriented x 3 Skin: normal color, warm/dry Lymphatic: no adenopathy (Mental, submandibular, anterior cervical) Assessment/Plan Assessment/Plan Assessment/Plan Gastritis secondary to alcohol usage Nausea & vomiting Alcohol withdrawal Alcohol abuse Hx ulcers Protonix Carafate Pepcid Supportive care Discussed stopping EtOH use Supervisory-Addendum Brief Verification & Attestation Participated in pt care: history, MDM, physical Personally performed: exam, history, MDM, supervision of care Care discussed with: Medical Student Procedures: n/a Results interpretation: Verified all documentation Verification and Attestation of Medical Student E/M Service A medical student performed and documented this service in my presence. I review ed and verified all information documented by the medical student and made modifications to such information, when appropriate. I personally performed the physical exam and medical decision making. Cassie Moy, Dec 31, 2022,14:35 IBIS MOREAU Dec 31, 2022 12:19 CASSIE MOY DO Dec 31, 2022 14:19
[2022-12-31 13:30] VITALS: BP 147/77
[2022-12-31 15:20] VITALS: BP 127/65
--- NOTE | 2022-12-31 17:36 | Progress Note - Hospitalist ---
Subjective HPI/CC On Admission Date Seen by Provider: Dec 31, 2022 Time Seen by Provider: 10:30 Delirium Tremens due to Severe Alcohol Withdrawal Subjective/Events-last exam He is laying in bed and appears comfortable. He was able to eat without issue. He reports severe abdominal pain and has been getting very upset with nursing staff about pain medicine. Objective Exam Vital Signs Vital Signs Date Time Temp Pulse Resp B/P (MAP) Pulse Ox O2 Delivery O2 Flow Rate FiO2 12/31/22 15:20 36.8 86 18 127/65 (85) 96 Room Air Capillary Refill : Less Than 3 Seconds General Appearance: No Apparent Distress, WD/WN Respiratory: Lungs Clear, No Respiratory Distress Cardiovascular: Regular Rate, Rhythm, No Murmur Gastrointestinal: Normal Bowel Sounds, Soft, Tenderness Extremity: Normal Inspection, No Pedal Edema Neurologic/Psychiatric: Alert, No Motor/Sensory Deficits Skin: Normal Color, Warm/Dry Results/Procedures Lab Laboratory Tests 12/31/22 04:36 Patient resulted labs reviewed. Imaging: Reviewed Imaging Report Assessment/Plan Assessment and Plan Assess & Plan/Chief Complaint Alcohol withdrawal Improving CIWA protocol Vitamin supplementation Social work following Transfer to medical floor Alcoholic gastritis IV PPI Carafate Surgery consulted Famotidine added Ulcer/[place] diet HTN Clonidine as needed Delirium tremens, resolved Diagnosis/Problems Diagnosis/Problems (1) Delirium tremens Status: Resolved Resolution Date/Time: 12/31/22 @ 17:36 (2) Alcohol withdrawal Status: Acute Qualifiers: Complication of substance-induced condition: with perceptual disturbance Qualified Codes: F10.932 - Alcohol use, unspecified with withdrawal with perceptual disturbance (3) Dehydration Status: Resolved Resolution Date/Time: 12/31/22 @ 17:36 (4) Epigastric abdominal pain Status: Acute (5) Nausea vomiting and diarrhea Status: Resolved Resolution Date/Time: 12/31/22 @ 17:36 (6) Alcohol abuse Status: Chronic (7) Generalized abdominal pain Status: Acute (8) Intractable nausea and vomiting Status: Resolved Resolution Date/Time: 12/31/22 @ 17:36 (9) Alcoholic gastritis without bleeding Status: Acute Qualifiers: Chronicity: acute Qualified Codes: K29.20 - Alcoholic gastritis without bleeding KAIA RAPHAEL MD Dec 31, 2022 17:36
[2022-12-31] MEDS ORDERED: ACETAMINOPHEN 325 MG TABLET ONE (17:41)
[2022-12-31 19:22] VITALS: BP 139/68
[2022-12-31] MEDS: FAMOTIDINE INJ 20MG/2ML VIAL IVP SCH (19:46)
[2023-01-01] MEDS: LORazepam 1 MG TABLET PO PRN ×3 (00:38→13:35)
[2023-01-01 00:39] VITALS: BP 138/96
[2023-01-01 04:38] VITALS: BP 143/90
[2023-01-01] MEDS: SUCRALFATE 1 GM TABLET PO SCH ×2 (04:41→11:49)
[2023-01-01] MEDS: THERAPEUTIC MULTIVITAMIN W/MINERALS TABLET PO SCH (04:41)
[2023-01-01 05:55] LABS: BASOPHILS # (AUTO) 0.1 10^3/uL (0.0-0.1); BASOPHILS % (AUTO) 1 % (0-10); EOSINOPHILS # (AUTO) 0.2 10^3/uL (0.0-0.3); EOSINOPHILS % (AUTO) 3 % (0-10); HEMATOCRIT 44 % (40-54); HEMOGLOBIN 14.8 g/dL (13.3-17.7); LYMPHOCYTES % (AUTO) 26 % (12-44); MEAN CORPUSCULAR HEMOGLOBIN 34 pg (25-34); MEAN CORPUSCULAR HGB CONC 34 g/dL (32-36); MEAN CORPUSCULAR VOLUME 100 fL (80-99); MEAN PLATELET VOLUME 9.9 fL (9.0-12.2); MONOCYTES # (AUTO) 0.9 10^3/uL (0.0-1.0); MONOCYTES % (AUTO) 12 % (0-12); NEUTROPHILS # (AUTO) 4.3 10^3/uL (1.8-7.8); NEUTROPHILS % (AUTO) 58 % (42-75); PLATELET COUNT 238 10^3/uL (130-400); WHITE BLOOD COUNT 7.5 10^3/uL (4.3-11.0)
[2023-01-01 06:15] LABS: CALCIUM 8.8 MG/DL (8.5-10.1); CREATININE SERUM 0.83 MG/DL (0.60-1.30); MAGNESIUM 1.7 MG/DL (1.6-2.4); POTASSIUM 3.3 MMOL/L (3.6-5.0)
[2023-01-01 07:07] VITALS: BP 141/87
--- NOTE | 2023-01-01 07:11 | Progress Note - Surgery ---
IBIS MOREAU 01/01/23 0710: Subjective Date Seen by a Provider: Jan 01, 2023 Time Seen by a Provider: 06:40 Subjective/Events-last exam Patient is doing better than yesterday. His tremors have stopped and the pain has gone down, putting it at a 6-7/10, but the pain is still constant. States that the tylenol has not been helping much and was inquiring about getting some other pain medication that might help. He did eat last night and was able to tolerate & keep the food down, but it did cause some discomfort. Has nausea, headache, denies visual changes, vomiting, chest pain. Review of Systems General: No Chills; Night Sweats HEENT: Head Aches; No Visual Changes Pulmonary: No Dyspnea, No Cough Cardiovascular: No: Chest Pain, Palpitations Gastrointestinal: Nausea, Abdominal Pain; No: Vomiting Genitourinary: No Dysuria, No Frequency Musculoskeletal: No: neck pain, shoulder pain Neurological: No: Weakness, Change in speech Objective Exam Vital Signs Date Time Temp Pulse Resp B/P (MAP) Pulse Ox O2 Delivery O2 Flow Rate FiO2 01/01/23 04:38 36.2 71 16 143/90 (107) 97 Room Air 01/01/23 01:00 99 01/01/23 00:39 36.8 97 20 138/96 (110) 98 Room Air 12/31/22 20:00 Room Air 12/31/22 19:22 37.1 105 16 139/68 (91) 100 Room Air 12/31/22 19:00 106 12/31/22 15:20 36.8 86 18 127/65 (85) 96 Room Air 12/31/22 13:30 37.0 94 16 147/77 (100) 99 Room Air 12/31/22 12:00 98 151/100 (117) 97 Room Air 12/31/22 11:00 100 132/106 (115) 97 Room Air 12/31/22 10:00 89 98 Room Air 12/31/22 09:00 116 153/94 (113) 99 Room Air 12/31/22 08:00 91 100 Room Air 12/31/22 08:00 98 Room Air 12/31/22 07:28 36.4 I & O 01/01/23 07:00 Intake Total 1935 ml Output Total 850 ml Balance 1085 ml Capillary Refill : Less Than 3 Seconds General Appearance: No Apparent Distress, WD/WN HEENT: PERRL/EOMI; No Scleral Icterus (L), No Scleral Icterus (R) Neck: Non Tender, Supple Respiratory: Normal Breath Sounds, No Accessory Muscle Use, No Respiratory Distress Cardiovascular: Regular Rate, Rhythm, No Murmur Gastrointestinal: soft, guarding, tenderness (Epigastric, LUQ, LLQ, RUQ) Extremity: Normal Inspection, No Pedal Edema Neurologic/Psychiatric: Alert, Normal Mood/Affect Skin: Normal Color, Warm/Dry Results Lab Laboratory Tests 01/01/23 05:35: White Blood Count 7.5, Red Blood Count 4.37, Hemoglobin 14.8, Hematocrit 44, Mean Corpuscular Volume 100H, Mean Corpuscular Hemoglobin 34, Mean Corpuscular Hemoglobin Concent 34, Red Cell Distribution Width 11.1, Platelet Count 238, Mean Platelet Volume 9.9, Immature Granulocyte % (Auto) 0, Neutrophils (%) (Auto) 58, Lymphocytes (%) (Auto) 26, Monocytes (%) (Auto) 12, Eosinophils (%) (Auto) 3, Basophils (%) (Auto) 1, Neutrophils # (Auto) 4.3, Lymphocytes # (Auto) 2.0, Monocytes # (Auto) 0.9, Eosinophils # (Auto) 0.2, Basophils # (Auto) 0.1, Immature Granulocyte # (Auto) 0.0, Sodium Level 138, Potassium Level 3.3L, Chloride Level 104, Carbon Dioxide Level 23, Anion Gap 11, Blood Urea Nitrogen 7, Creatinine 0.83, Estimat Glomerular Filtration Rate 122, BUN/Creatinine Ratio 8, Glucose Level 97, Calcium Level 8.8, Magnesium Level 1.7 Assessment/Plan Assessment/Plan Assessment/Plan Gastritis secondary to alcohol usage Nausea & vomiting Alcohol withdrawal Alcohol abuse Hx ulcers Pain management Ulcer diet CASSIE FERRELL DO 01/01/23 1129: Subjective Subjective/Events-last exam Doing better. Abdominal pain decreased. Tolerating diet. Denies any new complaints. Denies fever sweats chills shortness of breath or chest pain at this time. Objective Exam General Appearance: No Apparent Distress, WD/WN HEENT: PERRL/EOMI, Normal ENT Inspection Neck: Non Tender, Supple Respiratory: Chest Non Tender, No Accessory Muscle Use, No Respiratory Distress Cardiovascular: Regular Rate, Rhythm, No JVD Gastrointestinal: soft, guarding, tenderness (Epigastric, LUQ, LLQ, RUQ - better) Extremity: Normal Inspection, Non Tender Neurologic/Psychiatric: Alert, Normal Mood/Affect Skin: Normal Color, Warm/Dry Lymphatic: No Adenopathy Assessment/Plan Assessment/Plan Assessment/Plan Gastritis secondary to alcohol usage Nausea & vomiting Alcohol withdrawal Alcohol abuse Hx ulcers Pain management EtOH cessation Ulcer diet Protonix/pepcid/carafate follow up outpatient may benefit from egd Supervisory-Addendum Brief Verification & Attestation Participated in pt care: history, MDM, physical Personally performed: exam, history, MDM, supervision of care Care discussed with: Medical Student Procedures: n/a Results interpretation: Verified all documentation Verification and Attestation of Medical Student E/M Service A medical student performed and documented this service in my presence. I reviewed and verified all information documented by the medical student and made modifications to such information, when appropriate. I personally performed the physical exam and medical decision making. Cassie Ferrell, Jan 01, 2023,11:28 IBIS MOREAU Jan 01, 2023 07:10 CASSIE FERRELL DO Jan 01, 2023 11:29
[2023-01-01] MEDS: FOLIC ACID 1 MG TAB PO SCH (08:56)
[2023-01-01] MEDS: FAMOTIDINE INJ 20MG/2ML VIAL IVP SCH (08:57)
[2023-01-01] MEDS: PANTOPRAZOLE INJECTION 40 MG VIAL IV SCH (08:57)
[2023-01-01] MEDS: SENNOSIDES 8.6 MG TABLET PO SCH (08:58)
[2023-01-01] MEDS: DOCUSATE SODIUM 100 MG CAPSULE PO SCH (08:59)
[2023-01-01] MEDS ORDERED: hydrOXYzine 10 MG TABLET PO PRN (09:30)
--- NOTE | 2023-01-01 09:56 | Discharge Inst-Simple/Standard ---
Discharge Inst-Standard Discharge Medications New, Converted or Re-Newed RX: Transmitted to Pharmacy Patient Instructions/Follow Up Plan of Care/Instructions/FU: Please continue to take your medications as written. Please follow up with your primary care doctor to follow up this hospital stay. Activity as Tolerated: Yes Discharge Diet: Low Fat/Low Cholesterol (bland diet) Return to The Hospital For: Chest pain, abd pain, fever, weakness, confusion, shortness of breath, if you feel you are getting worse. FLASH RADFORD MD Jan 01, 2023 09:56
[2023-01-01] MEDS ORDERED: MULT-1137 PO (11:36)
[2023-01-01] MEDS ORDERED: SUCR1TAB PO (11:36)
[2023-01-01] MEDS ORDERED: PANT40TA2 PO (11:36)
--- NOTE | 2023-01-01 11:43 | Discharge Summary ---
Diagnosis/Chief Complaint Date of Admission Dec 27, 2022 at 18:59 Date of Discharge Discharge Date: Jan 01, 2023 Admission Diagnosis Primary Care Thaddeus Castillo MD Discharge Diagnosis (1) Delirium tremens Status: Resolved (2) Alcohol withdrawal Status: Acute (3) Dehydration Status: Resolved (4) Epigastric abdominal pain Status: Acute (5) Nausea vomiting and diarrhea Status: Resolved (6) Alcohol abuse Status: Chronic (7) Generalized abdominal pain Status: Acute (8) Intractable nausea and vomiting Status: Resolved (9) Alcoholic gastritis without bleeding Status: Acute Discharge Summary Discharge Physical Exam Allergies: Coded Allergies: No Known Drug Allergies (Unverified , 12/20/22) Vitals & I&Os Vital Signs Date Time Temp Pulse Resp B/P (MAP) Pulse Ox O2 Delivery O2 Flow Rate FiO2 01/01/23 12:30 111 01/01/23 11:59 36.0 17 138/78 (98) 98 Room Air General Appearance: No Apparent Distress, WD/WN Cardiovascular: Regular Rate, Rhythm Gastrointestinal: Normal Bowel Sounds, Soft Neurologic/Psychiatric: Alert, Oriented x3 Hospital Course Patient was admitted to the hospital secondary to alcohol withdrawal. He was in the ICU initially with Precedex drip secondary to delirium tremens. This slowly improved but he had persistent abdominal pain. Surgery was consulted this was thought likely to be due to alcoholic gastritis. They plan to follow-up with him as an outpatient. He was started on a PPI and Carafate and was tolerating a diet and pain improved. He was seen by social media marketing analyst to assist him with alcohol cessation and resources were provided to patient. He was discharged home in stable improved condition to follow-up with his primary care physician and surgery. Labs (last 24 hrs) Patient resulted labs reviewed. Pending Labs Imaging: Reviewed Imaging Report Discussion & Recommendations Discharge Planning: >30 minutes discharge planning Discharge Home Medications: Active Scripts Active Protonix (Pantoprazole Sodium) 40 Mg Tablet.dr 40 Mg PO DAILY Tab-A-Bg Multivit with Iron (Multivitamin/Iron/Folic Acid) 18 Mg Iron-400 Mcg Tablet 1 Ea PO DAILY@0700 Sucralfate 1 Gram Tablet 1 Gm PO ACHS Reported Beba-D 12 Hour Tablet (Fexofenadine/Pseudoephedrine) 60 Mg-120 Mg Tab.er.12h 1 Each PO Q12H PRN Hydroxyzine HCl 25 Mg Tablet 25 Mg PO BID PRN Fluoxetine HCl 20 Mg Capsule 20 Mg PO DAILY Instructions to patient/family Please see electronic discharge instructions given to patient. Problem Qualifiers (1) Alcohol withdrawal: Complication of substance-induced condition: with perceptual disturbance Qualified Codes: F10.932 - Alcohol use, unspecified with withdrawal with perceptual disturbance (2) Alcoholic gastritis without bleeding: Chronicity: acute Qualified Codes: K29.20 - Alcoholic gastritis without bleeding FLASH RADFORD MD Jan 01, 2023 11:43
[2023-01-01 11:59] VITALS: BP 138/78
== END 2023-01-01 14:26 | disposition home or self-care (01) | DRG 897 ==
LOC: EDUNIT# 09:37 → ER 09:39 → CSD 15:54 → OBSVTOIN 18:59 → ICU 19:58 → 4TH 12-31 12:58
PROVIDERS: ADMIT Internal Medicine; ATTEND Internal Medicine
DX: F10.131 Alcohol abuse with withdrawal delirium (principal); K29.20 Alcoholic gastritis without bleeding; F17.200 Nicotine dependence, unspecified, uncomplicated; F32.A Depression, unspecified; F41.9 Anxiety disorder, unspecified; K21.9 Gastro-esophageal reflux disease without esophagitis; I10 Essential (primary) hypertension; E86.0 Dehydration
CPT/HCPCS: 36415; 74177; 80048; 80053; 80306; 80320; 81000; 83690; 83735; 84100; 85025; 86141; 93005